=== PATIENT | male | born 1960 | race Caucasian/White ===

== ENCOUNTER 2020-06-18 07:48 | Outpatient (REF) | payer OTHER, SELFPAY ==
[2020-06-18 11:35] LABS: Estimated Average Glucose 186 mg/dL; Hemoglobin A1c % 8.1 %
[2020-06-18 11:53] LABS: Cholesterol 120 mg/dL; HDL Cholesterol 35 mg/dL; LDL Cholesterol Calculated 53 mg/dl; Triglycerides 162 mg/dL
[2020-06-18 11:57] LABS: Microalbum/Creatinine Ratio Ur 11.7 ug/mg cr
== END 2020-06-18 07:49 | disposition home or self-care (01) ==
LOC: HO.MANLR 07:48
PROVIDERS: PCP Internal Medicine; Visit Provider Internal Medicine
DX: E11.9 Type 2 diabetes mellitus without complications (principal)
CPT/HCPCS: 36415; 80061; 82043; 83036

== ENCOUNTER 2020-10-22 07:36 | Outpatient (REF) | payer OTHER, SELFPAY ==
[2020-10-22 11:47] LABS: Estimated Average Glucose 278 mg/dL; Hemoglobin A1c % 11.3 %
== END 2020-10-22 07:37 | disposition home or self-care (01) ==
LOC: HO.MANLDS 07:36
PROVIDERS: PCP Internal Medicine; Visit Provider Internal Medicine
DX: E11.9 Type 2 diabetes mellitus without complications (principal)
CPT/HCPCS: 36415; 83036

== ENCOUNTER 2020-11-07 09:47 | Outpatient (REF) | payer OTHER, SELFPAY ==
[2020-11-07 13:13] LABS: Estimated Average Glucose 289 mg/dL; Hemoglobin A1c % 11.7 %
[2020-11-07 13:33] LABS: Anion Gap 15 (12-20); Blood Urea Nitrogen 14 mg/dL (9-16); Calcium 9.1 mg/dL (8.4-10.2); Carbon Dioxide 22 mmol/L (22-29); Chloride 103 mmol/L (96-108); Estimated Glomerular Filt Rate > 60; Glucose Fasting 284 mg/dL (60-99); Potassium 4.3 mmol/L (3.3-5.1); Sodium 136 mmol/L (135-145)
== END 2020-11-07 09:48 | disposition home or self-care (01) ==
LOC: HO.MANLDS 09:47
PROVIDERS: PCP Internal Medicine; Visit Provider Internal Medicine
DX: E11.9 Type 2 diabetes mellitus without complications (principal); E87.1 Hypo-osmolality and hyponatremia
CPT/HCPCS: 36415; 80048; 83036

== ENCOUNTER 2020-12-10 07:45 | Outpatient (REF) | payer OTHER, SELFPAY ==
[2020-12-10 11:07] LABS: Estimated Average Glucose 237 mg/dL; Hemoglobin A1c % 9.9 %
== END 2020-12-10 07:46 | disposition home or self-care (01) ==
LOC: HO.MANLDS 07:45
PROVIDERS: PCP Internal Medicine; Visit Provider Internal Medicine
DX: E11.9 Type 2 diabetes mellitus without complications (principal)
CPT/HCPCS: 36415; 83036

== ENCOUNTER 2021-02-20 07:39 | Outpatient (REF) | payer OTHER, SELFPAY ==
[2021-02-20 11:36] LABS: Cholesterol 113 mg/dL; HDL Cholesterol 41 mg/dL; LDL Cholesterol Calculated 49 mg/dl; Triglycerides 118 mg/dL
[2021-02-20 11:44] LABS: Estimated Average Glucose 154 mg/dL
== END 2021-02-20 07:40 | disposition home or self-care (01) ==
LOC: HO.MANLDS 07:39
PROVIDERS: PCP Internal Medicine; Visit Provider Internal Medicine
DX: E11.9 Type 2 diabetes mellitus without complications (principal)
CPT/HCPCS: 36415; 80061; 83036

== ENCOUNTER 2021-05-20 08:10 | Outpatient (REF) | payer OTHER, SELFPAY ==
[2021-05-20 11:32] LABS: Estimated Average Glucose 143 mg/dL; Hemoglobin A1c % 6.6 %
== END 2021-05-20 08:11 | disposition home or self-care (01) ==
LOC: HO.MANLDS 08:10
PROVIDERS: PCP Internal Medicine; Visit Provider Internal Medicine
DX: E11.9 Type 2 diabetes mellitus without complications (principal)
CPT/HCPCS: 36415; 83036

== ENCOUNTER 2021-08-19 07:47 | Outpatient (REF) | payer OTHER, SELFPAY ==
[2021-08-19 11:57] LABS: Estimated Average Glucose 148 mg/dL; Hemoglobin A1c % 6.8 %
[2021-08-19 12:10] LABS: Creatinine Urine 178.52 mg/dL; Microalbum/Creatinine Ratio Ur 8.4 ug/mg cr
[2021-08-19 12:17] LABS: Alanine Aminotransferase 35 U/L (0-40); Albumin Level 4.5 g/dL (3.5-5.0); Alkaline Phosphatase 58 U/L (39-117); Anion Gap 14 (12-20); Aspartate Amino Transferase 17 U/L (5-37); Bilirubin Total 0.6 mg/dL (0.0-1.0); Blood Urea Nitrogen 15 mg/dL (9-16); Calcium 9.3 mg/dL (8.4-10.2); Carbon Dioxide 28 mmol/L (22-29); Chloride 101 mmol/L (96-108); Cholesterol 113 mg/dL; Estimated Glomerular Filt Rate > 60; Glucose Fasting 102 mg/dL (60-99); HDL Cholesterol 36 mg/dL; LDL Cholesterol Calculated 52 mg/dl; Potassium 4.9 mmol/L (3.3-5.1); Sodium 138 mmol/L (135-145); Triglycerides 128 mg/dL
[2021-08-19 12:39] LABS: Vitamin B12 364 pg/mL (200-900)
[2021-08-19 12:48] LABS: Thyroid Stimulating Hormone 1.57 uIU/mL (0.32-4.0)
[2021-08-20 14:32] LABS: Prostate Specific Antigen 1.31 ng/mL (<0.05-4.0); Vitamin D 25-OH Total 13.3 ng/mL (>30)
== END 2021-08-19 07:48 | disposition home or self-care (01) ==
LOC: HO.MANLDS 07:47
PROVIDERS: PCP Internal Medicine; Visit Provider Internal Medicine
DX: Z12.5 Encounter for screening for malignant neoplasm of prostate (principal); I10 Essential (primary) hypertension; E11.9 Type 2 diabetes mellitus without complications
CPT/HCPCS: 36415; 80053; 80061; 82043; 82306; 82607; 83036; 84153; 84443

== ENCOUNTER 2021-12-16 07:32 | Outpatient (REF) | payer OTHER, SELFPAY ==
[2021-12-16 11:08] LABS: Estimated Average Glucose 148 mg/dL; Hemoglobin A1c % 6.8 %
[2021-12-16 11:42] LABS: Vitamin D 25-OH Total 35.7 ng/mL (>30)
== END 2021-12-16 07:33 | disposition home or self-care (01) ==
LOC: HO.MANLDS 07:32
PROVIDERS: Visit Provider Internal Medicine
DX: E11.9 Type 2 diabetes mellitus without complications (principal); E55.9 Vitamin D deficiency, unspecified
CPT/HCPCS: 36415; 82306; 83036

== ENCOUNTER 2022-04-07 07:34 | Outpatient (REF) | payer OTHER, SELFPAY ==
[2022-04-07 11:49] LABS: Estimated Average Glucose 160 mg/dL; Hemoglobin A1c % 7.2 %
[2022-04-07 12:03] LABS: Prostate Specific Antigen 1.68 ng/mL (<0.05-4.0); Thyroid Stimulating Hormone 1.49 uIU/mL (0.32-4.0); Vitamin D 25-OH Total 29.9 ng/mL (>30)
[2022-04-07 12:05] LABS: Alanine Aminotransferase 43 U/L (0-40); Albumin Level 4.4 g/dL (3.5-5.0); Alkaline Phosphatase 71 U/L (39-117); Anion Gap 19 (12-20); Aspartate Amino Transferase 21 U/L (5-37); Bilirubin Total 0.3 mg/dL (0.0-1.0); Blood Urea Nitrogen 18 mg/dL (9-16); Carbon Dioxide 25 mmol/L (22-29); Chloride 103 mmol/L (96-108); Cholesterol 123 mg/dL; Estimated Glomerular Filt Rate > 60; Glucose Random 130 mg/dL (60-115); HDL Cholesterol 39 mg/dL; LDL Cholesterol Calculated 39 mg/dl; Potassium 5.1 mmol/L (3.3-5.1); Sodium 142 mmol/L (135-145); Total Protein 6.9 g/dL (6.5-8.0); Triglycerides 228 mg/dL
[2022-04-07 12:21] LABS: Microalbum/Creatinine Ratio Ur 14.7 ug/mg cr
[2022-04-07 12:28] LABS: Vitamin B12 328 pg/mL (200-900)
== END 2022-04-07 07:35 | disposition home or self-care (01) ==
LOC: HO.MANLDS 07:34
PROVIDERS: Visit Provider Internal Medicine
DX: Z12.5 Encounter for screening for malignant neoplasm of prostate (principal); I10 Essential (primary) hypertension; E11.9 Type 2 diabetes mellitus without complications
CPT/HCPCS: 36415; 80053; 80061; 82043; 82306; 82607; 83036; 84153; 84443

== ENCOUNTER 2022-08-18 07:30 | Outpatient (REF) | payer OTHER, SELFPAY ==
[2022-08-18 11:57] LABS: Estimated Average Glucose 171 mg/dL; Hemoglobin A1c % 7.6 %
== END 2022-08-18 07:31 | disposition home or self-care (01) ==
LOC: HO.MANLDS 07:30
PROVIDERS: Visit Provider Internal Medicine
DX: E11.9 Type 2 diabetes mellitus without complications (principal); E55.9 Vitamin D deficiency, unspecified
CPT/HCPCS: 36415; 82306; 83036

== ENCOUNTER 2022-12-15 07:34 | Outpatient (REF) | payer OTHER, SELFPAY ==
[2022-12-15 15:19] LABS: Estimated Average Glucose 137 mg/dL; Hemoglobin A1c % 6.4 %
[2022-12-15 15:35] LABS: Cholesterol 90 mg/dL; HDL Cholesterol 36 mg/dL; LDL Cholesterol Calculated 32 mg/dl; Triglycerides 111 mg/dL
== END 2022-12-15 07:35 | disposition home or self-care (01) ==
LOC: HO.MANLDS 07:34
PROVIDERS: Visit Provider Internal Medicine
DX: E11.9 Type 2 diabetes mellitus without complications (principal)
CPT/HCPCS: 36415; 80061; 83036

== ENCOUNTER 2023-03-16 07:34 | Outpatient (REF) | payer OTHER, SELFPAY ==
[2023-03-16 14:08] LABS: Estimated Average Glucose 128 mg/dL; Hemoglobin A1c % 6.1 % (<6.0)
[2023-03-16 14:40] LABS: Alanine Aminotransferase 39 U/L (0-40); Albumin Level 4.4 g/dL (3.5-5.0); Alkaline Phosphatase 62 U/L (39-117); Anion Gap 15 (12-20); Aspartate Amino Transferase 23 U/L (5-37); Bilirubin Total 0.4 mg/dL (0.0-1.0); Blood Urea Nitrogen 16 mg/dL (9-16); Calcium 9.7 mg/dL (8.4-10.2); Carbon Dioxide 25 mmol/L (22-29); Chloride 103 mmol/L (96-108); Cholesterol 102 mg/dL (<200); Estimated Glomerular Filt Rate > 60; Glucose Random 110 mg/dL (60-115); HDL Cholesterol 38 mg/dL (>40); LDL Cholesterol Calculated 42 mg/dL (<100); Potassium 3.9 mmol/L (3.3-5.1); Sodium 139 mmol/L (135-145); Total Protein 7.1 g/dL (6.5-8.0); Triglycerides 114 mg/dL (<150)
== END 2023-03-16 07:35 | disposition home or self-care (01) ==
LOC: HO.MANLDS 07:34
PROVIDERS: Visit Provider Internal Medicine
DX: E11.9 Type 2 diabetes mellitus without complications (principal)
CPT/HCPCS: 36415; 80053; 80061; 83036

== ENCOUNTER 2023-05-18 08:20 | Outpatient (REF) | payer OTHER, SELFPAY ==
[2023-05-18 09:22] LABS: Estimated Average Glucose 137 mg/dL; Hemoglobin A1c % 6.4 % (<6.0)
[2023-05-18 09:44] LABS: Alanine Aminotransferase 26 U/L (0-40); Albumin Level 4.3 g/dL (3.5-5.0); Alkaline Phosphatase 63 U/L (39-117); Anion Gap 13 (12-20); Aspartate Amino Transferase 14 U/L (5-37); Bilirubin Total 0.3 mg/dL (0.0-1.0); Blood Urea Nitrogen 16 mg/dL (9-16); Calcium 9.6 mg/dL (8.4-10.2); Carbon Dioxide 31 mmol/L (22-29); Chloride 104 mmol/L (96-108); Cholesterol 89 mg/dL (<200); Estimated Glomerular Filt Rate > 60; Glucose Random 124 mg/dL (60-115); HDL Cholesterol 40 mg/dL (>40); LDL Cholesterol Calculated 38 mg/dL (<100); Potassium 4.7 mmol/L (3.3-5.1); Sodium 143 mmol/L (135-145); Total Protein 7.2 g/dL (6.5-8.0); Triglycerides 59 mg/dL (<150)
== END 2023-05-18 08:21 | disposition home or self-care (01) ==
LOC: HO.LAB 08:20
PROVIDERS: PCP Internal Medicine; Visit Provider Internal Medicine
DX: E11.9 Type 2 diabetes mellitus without complications (principal)
CPT/HCPCS: 36415; 80053; 80061; 83036

== ENCOUNTER 2023-08-24 07:36 | Outpatient (REF) | payer OTHER, SELFPAY ==
[2023-08-24 14:03] LABS: Estimated Average Glucose 131 mg/dL; Hemoglobin A1c % 6.2 % (<6.0)
== END 2023-08-24 07:37 | disposition home or self-care (01) ==
LOC: HO.MANLDS 07:36
PROVIDERS: Visit Provider Internal Medicine
DX: E11.9 Type 2 diabetes mellitus without complications (principal)
CPT/HCPCS: 36415; 83036

== ENCOUNTER 2023-12-07 07:32 | Outpatient (REF) | payer OTHER, SELFPAY ==
[2023-12-07 13:42] LABS: Estimated Average Glucose 134 mg/dL; Hemoglobin A1c % 6.3 % (<6.0)
== END 2023-12-07 07:33 | disposition home or self-care (01) ==
LOC: HO.MANLDS 07:32
PROVIDERS: Visit Provider Internal Medicine
DX: E11.9 Type 2 diabetes mellitus without complications (principal)
CPT/HCPCS: 36415; 83036

== ENCOUNTER 2024-03-23 07:48 | Outpatient (REF) | payer OTHER, SELFPAY ==
[2024-03-23 13:39] LABS: Estimated Average Glucose 131 mg/dL; Hemoglobin A1c % 6.2 % (<6.0); Total Hemoglobin (HGBA1C) 4069.3208 umol/L
== END 2024-03-23 07:49 | disposition home or self-care (01) ==
LOC: HO.MANLDS 07:48
PROVIDERS: Visit Provider Internal Medicine
DX: E11.9 Type 2 diabetes mellitus without complications (principal)
CPT/HCPCS: 36415; 83036

== ENCOUNTER 2024-06-29 06:33 | Outpatient (REF) | payer OTHER, SELFPAY ==
--- OUTSIDE RECORDS SUMMARY | 2024-06-29 06:35 | XMS_ITS | Data Portability ---
Author Organization [facility] Home Service Address [address] [place] [address] Assessment Encounter Date Assessment Date Assessment LastModified by Organization Details LastModified Time 05/31/2023 05/31/2023 [id number] [place] [id number] (POLYSOMNOGRAPH TECH) : MDM LOW MUST MEET 2 OF 3 ELEMENTS: PROBLEMS, DATA OR RISK ELEMENT 1: PROBLEMS ADDRESSED (LOW): 2 OR MORE SELF-LIMITED OR MINOR PROBLEMS OR 1 STABLE CHRONIC ILLNESS OR 1 ACUTE UNCOMPLICATED ILLNESS OR INJURY ELEMENT 2: DATA TO BE REVISED AND ANALYZED (LOW) MUST MEET 1 OF 2 CATEGORIES: CATEGORY 1. REVIEW OF PRIOR EXTERNAL NOTES/RESULTS, ORDERING OF TEST(S) CATEGORY 2. ASSESSMENT REQUIRING INDEPENDENT HISTORIAN(S) INCLUDE WHO THE HISTORIAN IS AND RELATION TO PT AND WHY PT IS UNABLE TO GIVE COMPLETE HISTORY ELEMENT 3: RISK (LOW) RISK OF COMPLICATIONS AND/OR MORBIDITY OR MORTALITY OF PATIENT MANAGEMENT PROVIDER MUST THOROUGHLY DOCUMENT ALL OF THE ELEMENTS COVERED Not available 05/31/2023 15:16:56 09/02/2023 09/02/2023 [id number] [place] [id number] (POLYSOMNOGRAPH TECH) MDM MODERATE MUST MEET 2 OUT OF 3 ELEMENTS: PROBLEMS, DATA OR RISK ELEMENT 1: PROBLEMS ADDRESSED 1 OR MORE CHRONIC ILLNESS WITH EXACERBATION OR 2 OR MORE STABLE CHRONIC ILLNESSES OR 1 UNDIAGNOSED NEW PROBLEM OR 1 ACUTE ILLNESS W/SYMPTOMS OR 1 ACUTE COMPLICATED INJURY ELEMENT 2: DATA MUST MEET 1 OF 3 CATEGORIES CATEGORY 1: REVIEW OF PRIOR EXTERNAL NOTES, REVIEW OF RESULTS, ORDERING OF EACH TEST, ASSESSMENT REQUIRING INDEPENDENT HISTORIAN OR CATEGORY 2: INDEPENDENT INTERPRETATION OF TESTS BY ANOTHER PHYSICIAN OR SPECIALIST OR CATEGORY 3: DISCUSSION OF MGT OR TEST INTERPRETATION W/EXTERNAL PHYSICIAN OR SPECIALIST ELEMENT 3: RISK RISK OF COMPLICATIONS AND/OR MORBIDITY OR MORTALITY OF PATIENT MANAGEMENT PROVIDER MUST THOROUGHLY DOCUMENT EACH ELEMENT THAT IS COVERED Not available 09/02/2023 11:18:18 12/14/2023 12/14/2023 [id number] [place] [id number] (POLYSOMNOGRAPH TECH) MDM MODERATE MUST MEET 2 OUT OF 3 ELEMENTS: PROBLEMS, DATA OR RISK ELEMENT 1: PROBLEMS ADDRESSED 1 OR MORE CHRONIC ILLNESS WITH EXACERBATION OR 2 OR MORE STABLE CHRONIC ILLNESSES OR 1 UNDIAGNOSED NEW PROBLEM OR 1 ACUTE ILLNESS W/SYMPTOMS OR 1 ACUTE COMPLICATED INJURY ELEMENT 2: DATA MUST MEET 1 OF 3 CATEGORIES CATEGORY 1: REVIEW OF PRIOR EXTERNAL NOTES, REVIEW OF RESULTS, ORDERING OF EACH TEST, ASSESSMENT REQUIRING INDEPENDENT HISTORIAN OR CATEGORY 2: INDEPENDENT INTERPRETATION OF TESTS BY ANOTHER PHYSICIAN OR SPECIALIST OR CATEGORY 3: DISCUSSION OF MGT OR TEST INTERPRETATION W/EXTERNAL PHYSICIAN OR SPECIALIST ELEMENT 3: RISK RISK OF COMPLICATIONS AND/OR MORBIDITY OR MORTALITY OF PATIENT MANAGEMENT PROVIDER MUST THOROUGHLY DOCUMENT EACH ELEMENT THAT IS COVERED Not available 12/14/2023 09:44:55 03/26/2024 03/26/2024 [id number] [place] [address] (POLYSOMNOGRAPH TECH) MDM MODERATE MUST MEET 2 OUT OF 3 ELEMENTS: PROBLEMS, DATA OR RISK ELEMENT 1: PROBLEMS ADDRESSED 1 OR MORE CHRONIC ILLNESS WITH EXACERBATION OR 2 OR MORE STABLE CHRONIC ILLNESSES OR 1 UNDIAGNOSED NEW PROBLEM OR 1 ACUTE ILLNESS W/SYMPTOMS OR 1 ACUTE COMPLICATED INJURY ELEMENT 2: DATA MUST MEET 1 OF 3 CATEGORIES CATEGORY 1: REVIEW OF PRIOR EXTERNAL NOTES, REVIEW OF RESULTS, ORDERING OF EACH TEST, ASSESSMENT REQUIRING INDEPENDENT HISTORIAN OR CATEGORY 2: INDEPENDENT INTERPRETATION OF TESTS BY ANOTHER PHYSICIAN OR SPECIALIST OR CATEGORY 3: DISCUSSION OF MGT OR TEST INTERPRETATION W/EXTERNAL PHYSICIAN OR SPECIALIST ELEMENT 3: RISK RISK OF COMPLICATIONS AND/OR MORBIDITY OR MORTALITY OF PATIENT MANAGEMENT PROVIDER MUST THOROUGHLY DOCUMENT EACH ELEMENT THAT IS COVERED Not available 03/26/2024 13:46:58 Plan of Treatment Reminders Order Date Submit Date Provider Last Modified By Organization Details Last Modified Time Details Appointments FOLLOW UP 15 2024 09:15A M DR KEY Not available Not available Not available Lab None recorded. Referral None recorded. Procedures None recorded. Surgeries None recorded. Imaging CT, sinuses, w/wo contrast 2023 024 [email or web address] Not available 10/04/2023 10:14:24 Medication Orders amoxicill in 875 mg-potass ium clavulana te 125 mg tablet 2023 024 [email or web address] [id number], [address] [place], [address], 09/28/2023 14:01:28 Patient TargetsNo targets recorded. Patient Instructions Encounter Date Encounter Id Patient Instructions Last Modified By Organization Details Last Modified Time 09/02/2023 [id number] Acute Sinusitis: Care Instructions Not available 09/02/2023 11:19:44 09/28/2023 [id number] chronic sinusitis: care instructions Not available 09/28/2023 14:16:44 12/14/2023 [id number] learning about type 2 diabetes Not available 12/14/2023 09:50:14 type 2 diabetes: care instructions Not available 12/14/2023 09:50:14 type 2 diabetes: care instructions Not available 12/14/2023 09:50:14 chronic sinusitis: care instructions Not available 12/14/2023 09:50:15 03/26/2024 [id number] type 2 diabetes: care instructions Not available 03/26/2024 13:48:22 Reason for Referral None Reported. Results Created Date Observation Date Name Description Value Unit Range Abnormal Flag Note LastModifiedBy Organization Detail LastModifiedTime 11/08/19 24 11/03/2023 CT, sinus es, w/o contr ast No observ ation record ed. [facility] (Scheduling Dept) [address] [place], [address], 12/14/2023 09:49:06 Result Notes None recorded. Problems Name Problem SNOMED Code Status Onset Date Resolution Date Notes Provider Name and Address Organization Details Recorded Time Hypo-osm olality and or hyponatr emia 471991595 Active 2017 Mario Key DO [address] [place], [address], [facility] 8 15:01:40 Pneumoni a 543228219 Active 2017 Mario Key DO [address] [place], [address], [facility] 8 15:01:49 Legionel la pneumoni a 925513903 Active 2017 Mario Key, DO [address] [place] [address], [address], [facility] 8 15:04:57 Tobacco user 256252600 Active 2017 Mario Key, DO [address] [place] [address], [address], [facility] 8 11:18:52 Herpesvi jesi infectio n 47541918 Active 2017 opthalmi val Oropeza [facility] 8 15:22:55 Tobacco dependen ce syndrome 72759314 Active 2018 Mario Key DO [address] [place] [address], [address], [facility] 9 10:17:52 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 5901322290 89443 Active 2018 Mario Key DO [address] [place] [address], [address], [facility] 9 09:05:14 Vitamin D deficien cy 00772997 Active 2021 Mario Key DO [address] [place] [address], [address], [facility] 2 10:10:46 Continuo us dependen ce on cigarett e smoking 2865862652 17358 Active 2021 Mario Key DO [address] [place] [address], [address], [facility] 2 11:50:41 Eczema 15458058 Active 2021 Mario Key DO [address] [place] [address], [address], [facility] 2 22:01:26 Pain in left arm 204696093 Active 2021 RUDY SHELBY [address] [place], [address], [facility] 2 14:01:12 Type 2 diabetes mellitus without complica tion 900432617 [facility] 15:43:36 Acute sinusiti s 43387002 Active 2022 Mario Key, [address] [place], [address], [facility] 3 10:05:59 Chronic sinusiti s 90911610 Active 2023 Mario Key DO [address] [place] [address], [address], [facility] 4 14:15:58 Chronic pansinus itis 08900617 Active 2023 Mario Key DO [address] [place] [address], [address], [facility] 4 22:07:03 Hyperten sive disorder 94843781 [facility] 08:48:08 Hypercho lesterol emia 20235578 Active 2017 [facility] 8 08:48:15 Impaired fasting glycemia 081127567 Completed 201708/21/2018 Mario Key DO [address] [place] [address], [address], [facility] 9 10:55:58 Polyp of colon 24891119 Active 2017 [facility] 08:49:09 Problem Notes None recorded. Procedures Surgical History Date Name Laterality Status Provider Name and Address Organization Details Recorded Time 7 Colonoscopy completed Florecita Oropeza [facility] 01/01/2019 09:58:53 Imaging Results Imaging Date Name Status LastModified by Organ ation Details LastModified Time 11/03/2023 CT, sinuses, w/o contrast completed [facility] (Scheduling Dept) [address] [facility], [place], [address], 12/14/2023 09:49:06 Procedure Notes None recorded. Medical Equipment None Reported. Allergies Allergen ID Allergen Name Allergen Category Reaction Reaction Severity Criticality Documentation Date Start Date Code Code System Note Provider Name and Address Organization Details Recorded Time 194 Substance with sulfonami de structure and antibacte rial mechanism of action (substanc e) medicatio n Not available Not available Not available 08/01/2017 43072 8003 SNOMED Florecita duenas [place] - [facility] 8 08:47:59 Medications Name Sig Start Date Stop Date Status Note LastModified by Organization Details LastModified Time Prescriptio n - Change active Not Available Not Available N ot Available Prescriptio n - Prior Authorizati on Request active Not Available Not Available N ot Available amoxicillin 500 mg capsule TAKE 1 CAPSULE BY MOUTH EVERY 8 HOURS UNTIL FINISHED 08/01 completed Not Available Not Available Not Available azithromyci n 250 mg tablet TAKE 2 TABLETS BY MOUTH TODAY, THEN TAKE 1 TABLET DAILY FOR 4 DAYS DIRECTED 09/01 completed Not Available Not Available Not Available meloxicam 15 mg tablet TAKE 1 TABLET BY MOUTH EVERY DAY DIRECTED 12/20 completed Not Available Not Available Not Available clobetasol 0.05 % topical cream APPLY THIN COAT TO AFFECTED AREA TWICE A DAY active Not Available Not Available No t Available simvastatin 80 mg tablet TAKE 1 TABLET DAILY active Not Available Not Available No t Available triamcinolo ne acetonide 0.1 % topical cream APPLY A THIN LAYER TO THE AFFECTED AREA(S) BY TOPICAL ROUTE 2 TIMES PER DAY 08/01 completed Not Available Not Available Not Available acyclovir 800 mg tablet TAKE 1 TABLET BY MOUTH EVERY DAY active Not Available Not Available No t Available oseltamivir 75 mg capsule Take 1 capsule twice a day by oral route for 5 days. 02/03 completed Not Available Not Available Not Available metformin 1,000 mg tablet TAKE 1 TABLET TWICE A DAY 2024 active Not Available Not Available Not Avai lable lisinopril 10 mg tablet Take 1 tablet every day by oral route. 08/21 completed Not Available Not Available Not Available nicotine 21 mg/24 hr daily transdermal patch Apply 1 patch every day by transderm al route for 30 days. 02/26 completed Not Available Not Available Not Available ibuprofen 600 mg tablet TAKE 1 TABLET BY MOUTH EVERY 6 HOURS NEEDED FOR PAIN 08/01 completed Not Available Not Available Not Available levofloxaci n 750 mg tablet Take 1 tablet every day by oral route for 5 days. 02/03 completed Not Available Not Available Not Available metformin ER 500 mg tablet,exte nded release 24 hr TAKE 1 TABLET BY MOUTH EVERY DAY 09/02 completed Not Available Not Available Not Available amoxicillin 875 mg-potassiu m clavulanate 125 mg tablet TAKE 1 TABLET BY MOUTH EVERY 12 HOURS FOR 14 DAYS 09/27 completed Not Available Not Available Not Available Januvia 100 mg tablet TAKE 1 TABLET BY MOUTH EVERY DAY active Not Available Not Available No t Available GaviLyte-G 236 gram-22.74 gram-6.74 gram-5.86 gram oral solution 09/09 completed Not Available Not Available Not Available Ozempic 0.25 mg or 0.5 mg (2 mg/3 mL) subcutaneou s pen injector INJECT 0.5MG INTO THE SKIN ONCE WEEKLY active Not Available Not Available No t Available Vitals Date Recorded Body height Body mass index (BMI) Body weight Oxygen saturation Oxygen saturation in Arterial blood by Pulse oximetry Heart rate Systolic blood pressure Diastolic blood pressure Provider Name and Address Organization Details Last Updated DateTime 4 172.72 cm 41.2 kg/m2 321116. 53 g 97 % 97 % 72 /min 128 mm[Hg] 72 mm[Hg] Mario Key, DO [address] [place], [address] 4 10:50:03 Date Recorded Body height Body mass index (BMI) Body weight Heart rate Respiratory rate Oxygen saturation Oxygen saturation in Arterial blood by Pulse oximetry Systolic blood pressure Diastolic blood pressure Provider Name and Address Organization Details Last Updated DateTime 4 172.72 cm 40.6 kg/m2 804108. 16 g 85 /min 18 /min 97 % 97 % 138 mm[Hg] 82 mm[Hg] Coy Varma [facility] 4 14:00:44 Date Recorded Body height Body mass index (BMI) Body weight Heart rate Oxygen saturation Oxygen saturation in Arterial blood by Pulse oximetry Systolic blood pressure Diastolic blood pressure Provider Name and Address Organization Details Last Updated DateTime 4 172.72 cm 40.4 kg/m2 805951. 57 g 85 /min 97 % 97 % 128 mm[Hg] 78 mm[Hg] Yusra Prescott [facility] 4 09:14:46 Date Recorded Body height Body mass index (BMI) Body weight Heart rate Oxygen saturation Oxygen saturation in Arterial blood by Pulse oximetry Systolic blood pressure Diastolic blood pressure Provider Name and Address Organization Details Last Updated DateTime 4 172.72 cm 40.1 kg/m2 804446. 39 g 71 /min 96 % 96 % 128 mm[Hg] 70 mm[Hg] Coy Varma [facility] 4 13:31:49 Social History Question Answer Notes LastModified by Sweeperyizat ion Details LastModified Time Tobacco Smoking Status Current Every Day Smoker Not Available [facility] 04/01/2020 03:36:24 What Was The Date Of Your Most Recent Tobacco Screening? 03/26/2024 Information not available 03/26/2024 How Much Tobacco Do You Smoke? 0.5 PPD Information not available 09/28/2023 Do You Or Have You Ever Used Any Other Forms Of Tobacco Or Nicotine? No Information not available 08/25/2022 Sex: Unknown Functional Status None recorded. Mental Status None recorded. Family History Nothing Reported. Medical History No medical history recorded. Immunizations Vaccine Type Date Status Note Provider Nam e and Address Organization Details Recorded Time COVID-19, mRNA, LNP-S, PF, 100 mcg/0.5mL dose or 50 mcg/0.25mL dose 09/17/2020 completed Not Available [facility] 3 11:19:00 COVID-19, mRNA, LNP-S, PF, 100 mcg/0.5mL dose or 50 mcg/0.25mL dose 10/14/2020 completed Not Available [facility] 3 11:19:00 Past Encounters Encounter ID Performer Location Encounter Start Date Encounter Closed Date Diagnosis/Indication Diagnosis SNOMED-CT Code Diagnosis ICD10 Code Diagnosis Note [id number] Mario Key [facility] [address] [facility],[place] [address] 09/09/2017 09:59:51 09/09/2017 12:24:07 Hypercholesterolemia 33175578 E78.00 recheck in 4-5 months Impaired f asting glycemia 312402400 R73.01 discussion re diet and eating habilts has gained some wgt but will embark on better diet problis he only eats once a day revchk lab in 3 months Hypertensive disorder 38 215115 I10 here for rechk states has been watching and has been ok [id number] Mario Key [facility] [address] [facility],[place] [address] 12/16/2017 11:50:42 12/16/2017 13:38:19 Nummular eczema 38652458 L30.0 [id number] August DANIEL Mills [facility] [address] [facility],[place] [address] 01/18/2018 09:42:29 01/18/2018 10:34:32 Fever 967007429 R50.9 possibly flu, unclear given absence of any other sx besides body aches fluids, rest, tylenol/ib uprofen for fever Hypertensive disorder 38 850270 I10 mildly elevated today ? 2/2 fever Impaired f asting glycemia 907122001 R73.01 [id number] Mario Key [facility] [address] [facility],[place] [address] 02/03/2018 13:56:39 02/03/2018 15:13:09 Hypo-osmolality and or hyponatremia 230458274 E87.1 needs further lab when stable to check for SIADH Pneumonia 524439243 J18. 9 op tx with levaquin had signif levi infilt with reactive lymphadeno matt will need a CXR in a couple weeks had a positive legionella ag test in urine Legionella pneumonia 195 843482 A48.1 as above [id number] Mario Key [facility] [address] [facility] [address] [address] 02/22/2018 14:33:30 02/22/2018 15:42:44 Hypertensive disorder 36839805 I10 here for rechk states has been watching and has been ok Impaired f asting glycemia 270655427 R73.01 discussion re diet and eating habilts has gained some wgt but will embark on better diet problis he only eats once a day revchk lab in 3 months Pneumonia 241978267 J18. 9 legionella pneumonia has totally cleared by cxr feels back to normal Hypo-osmol ality and or hyponatremia 069515952 E87.1 needs further lab when stable to check for SIADH all ordered [id number] Mario Key DO [facility] [address] [facility] [address],[place] [address] 05/01/2018 10:42:34 05/01/2018 14:46:03 Impaired fasting glycemia 370104697 R73.01 a1c is 6.5 and is not careful with diabetes diet and is eating poorly warned him agian re dangers of developing full dm discussion re diet and eating habilts has gained some wgt but will embark on better diet problis he only eats once a day revchk lab in 3 months Hypertensive disorder 38 189129 I10 here for rechk states has been watching and has been ok is off the bp meds per the specialist s also will cont to chk bp if he cont to rise will need to be started back on med Tobacco user 641419006 Z 72.0 warned again re use needs to abstain given his other pathology [id number] DO [facility] [address] [facility] [address],[place] [address] 08/21/2018 10:13:37 08/21/2018 11:13:11 Hypercholesterolemia 57619526 E78.00 recheck in 4-5 months Hypertensive disorder 38 439067 I10 here for rechk states has been watching and has been ok is off the bp meds per the specialist s also will cont to chk bp if he cont to rise will need to be started back on med Type 2 noel betes mellitus 78781807 E11.9 plan will order metformin 500 daily and rechk in 4 months [id number] Mario Key [facility] [address] [facility] [address],[place] [address] 01/01/2019 09:41:36 01/01/2019 10:27:33 Hypertensive disorder 85554254 I10 here for rechk states has been watching and has been ok is off the bp meds per the specialist s also will cont to chk bp if he cont to rise will need to be started back on med Hypercholesterolemia 136 33697 E78.00 recheck in 4-5 months Tobacco user 133414416 Z 72.0 warned again re use needs to abstain given his other pathology Hepatitis C screening 41 3861368 Z11.59 Active or passive immunization 887536442 Z23 Type 2 noel betes mellitus 02297378 E11.9 metformin 500 daily tolerated and rechk in 4 months Tobacco de pendence syndrome 73563474 F17.200 [id number] Mario Key [facility] [address] [facility] [address],[place] [address] 05/02/2019 08:49:52 05/02/2019 09:13:32 Type 2 diabetes mellitus 80969788 E11.9 metformin 500 daily tolerated but wondering about wgt gain but there is no correlatio n a1c is up to 7.2 and rechk in 4 months Hypertensive disorder 38 272728 I10 bp has been stable and is doing good no chng in meds [id number] Mario Key [facility] [address] [facility] [address],[place] [address] 08/06/2019 09:57:39 08/06/2019 10:54:23 Type 2 diabetes mellitus 83094091 E11.9 metformin 500 daily tolerated but wondering about wgt gain but there is no correlatio n a1c is up to 7.2 and rechk in 4 months Hypertensive disorder 38 818617 I10 bp has been stable and is doing good no chng in meds Active or passive immunization 987480355 Z23 [id number] Mario Key [facility] [address] [facility] [address],[place] [address] 11/23/2019 09:32:18 11/23/2019 11:15:26 Type 2 diabetes mellitus 95871321 E11.9 metformin 500 daily tolerated but wondering about wgt gain but there is no correlatio n a1c is up to 7.6 from 7.5 and rechk in 4 months Hypertensive disorder 38 110398 I10 bp has been stable at home and is doing good despite sl elevat no chng in meds Restless legs 25230892 G 25.81 Pruritic rash 70165358 L 28.2 [id number] Mario Key [facility] [address] [facility] [address] [employer] [facility] [place] [address] 02/27/2020 09:02:57 02/27/2020 09:49:10 Type 2 diabetes mellitus 27642693 E11.9 metformin 500 daily tolerated but wondering about wgt gain but there is no correlatio n a1c is 7.5 and was up to 7.6 from 7.5 and rechk in 4 months Hypercholesterolemia 136 75217 E78.00 recheck in 4-5 months Hypertensive disorder 38 457681 I10 bp has been stable at home and is doing good despite sl elevat no chng in meds Petechiae of skin 633628 004 R23.3 could this be the acyclovir? will ask derm to see him [id number] Mario Key [facility] [address] [facility],[place] [address] 08/01/2020 08:44:29 08/01/2020 09:24:42 Type 2 diabetes mellitus 07635911 E11.9 a1c is 8.1 he is out of control states will get back in shape about this we will cont the metformin but if still high will need to treat we will rechk in3 mo dm foot exam is good Hypercholesterolemia 136 37081 E78.00 LDL is good HDL adequate will repeat in october Hypertensive disorder 38 346606 I10 bp has been stable at home and is doing good despite sl elevat no chng in meds [id number] Mario Key [facility] [address] [facility] [address],[place] [address] 11/07/2020 08:57:13 11/07/2020 12:17:51 Type 2 diabetes mellitus 03615755 E11.9 a1c is now 11.3 and was 8.1 he is out of control but i am not sure why this is as he has lost 20lbs in last 2 months by eating well and better and is much more active we ramsey rechk this lab as i have a hard time believing this result is accurate given the pts presentati on and hx will also chk his Na+ level Legionella pneumonia 195 940115 A48.1 resolved Hypertensive disorder 38 127530 I10 bp has been stable at home and is doing good despite sl elevat no chng in meds Hypercholesterolemia 136 34828 E78.00 LDL is good HDL adequate will repeat in october Hypo-osmol ality and or hyponatremia 139402368 E87.1 stable in jan and we will rechk now [id number] Mario Key DO [facility] [address] [facility] [address] [employer] [facility] [place] [address] 11/11/2020 16:02:55 11/11/2020 16:50:33 Type 2 diabetes mellitus 88136493 E11.9 a1c is now 11.7 from 11.3 and was 8.1 he is out of control but i am not sure why this is as he has lost 20lbs in last 2 months by eating well and better and is much more active change metformin to 1gm bid and add januvia 100mg \ [id number] Mario Key DO [facility] [address] [facility],[place] [employer] [place] [address] 12/17/2020 08:54:15 12/17/2020 09:36:44 Hypertensive disorder 36466855 I10 bp has been stable at home and is doing good despite sl elevat no chng in meds Type 2 noel betes mellitus 81324442 E11.9 a1c is now down to 9.9 from 11.7 from 11.3 and was 8.1 he is out of control but i am not sure why this is as he has lost 20lbs in last 2 months by eating well and better and is much more active change metformin to 1gm bid and add januvia 100mg \ [id number] Mario Key DO [facility] [address] [facility] [address] [employer] [place] [place] [address] 02/27/2021 08:18:42 02/27/2021 15:32:51 Hypertensive disorder [id number] I10 bp has been stable at home and is doing good despite sl elevat no chng in meds bp has been great Hypo-osmol ality and or hyponatremia 906835562 E87.1 stable in jan and we will rechk now Type 2 noel betes mellitus 19826918 E11.9 a1c is now 7.0!!!!!!! !! then down to 9.9 from 11.7 from 11.3 and was 8.1 he is out of control but i am he has lost 20lbs in last 2 months by eating well and better and is much more active change metformin to 1gm bid and add januvia 100mg tolerating well Pruritic rash 89282762 L 28.2 pt will call if it gets worse [place] [id number] Mario Key, [facility] [address] [facility],[place] [address] [facility] [place] [address] 06/30/2021 09:26:37 07/01/2021 08:50:30 Hypertensive disorder 11667323 I10 bp has been stable at home and is doing good despite sl elevat no chng in meds bp has been great Type 2 noel betes mellitus 03518427 E11.9 a1c is now 6.6 wow!!!!! was down to 7.0!!!!!!! !! then down to 9.9 from 11.7 from 11.3 and was 8.1 he is out of control but i am he has lost 20lbs in last 2 months by eating well and better and is much more active change metformin to 1gm bid and add januvia 100mg tolerating well COVID-19 [id number] U07.1 has resolved and just has some residual Legionella pneumonia 195 478371 A48.1 resolved without sequellae [id number] Mario Key, [facility] [address] [facility] [address],[place] [address] [facility] [place] [address] 09/02/2021 09:30:01 09/02/2021 11:29:14 Type 2 diabetes mellitus 97302091 E11.9 a1c is now 6.6 wow!!!!! was down to 7.0!!!!!!! !! then down to 9.9 from 11.7 from 11.3 and was 8.1 he is out of control but i am he has lost 20lbs in last 2 months by eating well and better and is much more active change metformin to 1gm bid and add januvia 100mg tolerating well Hypercholesterolemia 136 99505 E78.00 LDL is good HDL adequate will repeat in october Hypertensive disorder 38 131397 I10 bp has been stable at home and is doing good despite sl elevat no chng in meds bp has been great Tobacco user 847902632 Z 72.0 warned again re use needs to abstain given his other pathology Hypo-osmol ality and or hyponatremia 873812404 E87.1 stable in jan and we will rechk now Vitamin D deficiency 347 23327 E55.9 [id number] Mario Key [facility] [address] [facility],[place] [address] 12/28/2021 11:35:02 12/28/2021 13:07:07 Type 2 diabetes mellitus 25594131 E11.9 a1c is now 6.8 and was 6.6 wow!!!!! was down to 7.0!!!!!!! !! then down to 9.9 from 11.7 from 11.3 and was 8.1 he is out of control but i am he has lost 20lbs in last 2 months by eating well and better and is much more active change metformin to 1gm bid and add januvia 100mg tolerating well Hypercholesterolemia 136 61369 E78.00 LDL is good HDL adequate will repeat in october Hypertensive disorder 38 981559 I10 bp has been stable at home and is doing good despite sl elevat no chng in meds bp has been great Active or passive immunization [id number] Z23 advised he is due for Tdap and pneumovax Continuous dependence on cigarette smoking [id number] 55178 F17.210 discussed [id number] Mario Key DO [facility] [address] [facility],[place] [address] 04/19/2022 11:04:22 04/19/2022 13:31:19 Type 2 diabetes mellitus 24770148 E11.9 a1c is now 7.2 from 6.8 and was 6.6 wow!!!!! was down to 7.0!!!!!!! !! then down to 9.9 from 11.7 from change metformin to 1gm bid and add januvia 100mg tolerating well Hypercholesterolemia 136 49185 E78.00 LDL is good HDL adequate will repeat in october Hypertensive disorder 38 797239 I10 bp has been stable at home and is doing good despite sl elevat no chng in meds bp has been great Pain in left arm 9327584 00 M79.602 74007 Mario Key, [facility] [address] [facility],[place] [address] 08/25/2022 10:38:42 08/25/2022 11:38:54 Type 2 diabetes mellitus 12992258 E11.9 a1c is now 7.6 and was 7.2 in the fall from 6.8 and was 6.6 wow!!!!! was down to 7.0!!!!!!! !! then down to 9.9 from 11.7 from change metformin to 1gm bid and add januvia 100mg tolerating wellhe is still in need of better controlwe will try to get him ozempic Hypertensive disorder 38 769590 I10 bp has been stable at home and is doing good despite sl elevat no chng in meds bp has been great Vitamin D deficiency 347 42292 E55.9 will need follow up Legionella pneumonia 195 429407 A48.1 resolved without sequellae [id number] Mario Key, [facility] [address] [facility],[place] [address] 12/20/2022 10:11:39 12/20/2022 11:08:41 Hypertensive disorder 27300613 I10 bp has been stable at home and is doing good despite sl elevat no chng in meds bp has been great Type 2 noel betes mellitus 82607761 E11.9 a1c is now 6.4 since the last was 7.6 and was 7.2 in the fall from 6.8 and was 6.6 wow!!!!! he is now down to 6.4 and is doing great with ozempic to 7.0!!!!!!! !! then down to 9.9 from 11.7 from change metformin to 1gm bid and add januvia 100mg tolerating wellhe is still in need of better controlwe will try to get him ozempic Hypercholesterolemia 136 69690 E78.00 LDL is good HDL adequate will repeat in october Mario Key DO [facility] [address] [facility] [address],[place] [employer] [place] [address] 03/23/2023 15:33:55 03/23/2023 16:54:34 Hypercholesterolemia 91895036 E78.00 LDL is good HDL adequate will repeat in october Type 2 noel betes mellitus without complication 538084412 E11.9 doing great at a1c 6.1 on ozemp and metfr will have low threshold to change to mounjaro if supply occurs again Hypertensive disorder 38 533848 I10 bp has been stable at home and is doing good and here it is 120/72 no chng in meds bp has been great [id number] Mario Key [facility] [address] [facility] [address],[place] [employer] [place] [address] 05/31/2023 08:21:35 05/31/2023 16:08:33 Type 2 diabetes mellitus 79370272 E11.9 a1c is now 6.4 and prior was 6.4 since the last was 7.6 and was 7.2 in the fall from 6.8 and was 6.6 wow!!!!! he is now down to 6.4 and is doing great with ozempic to 7.0!!!!!!! !! then down to 9.9 from 11.7 from change metformin to 1gm bid and add januvia 100mg tolerating wellhe is still in need of better controlwe will try to get him ozempic Hypercholesterolemia 136 78820 E78.00 LDL is good HDL adequate will repeat in october Hypertensive disorder 38 232901 I10 bp has been stable at home bps are doing ok overall and is doing good and here it is 120/72 no chng in meds bp has been great [id number] Mario Key [facility] [address] [facility] [address],[place] [employer] [place] [address] 09/02/2023 10:31:21 09/02/2023 12:45:33 Type 2 diabetes mellitus 46105637 E11.9 a1c is now 6.2 was 6.4 and prior was 6.4 since the last was 7.6 and was 7.2 in the fall from 6.8 and was 6.6 wow!!!!! he is now down to 6.4 and is doing great with ozempic to 7.0!! then down to 9.9 from 11.7 from change metformin to 1gm bid and add januvia 100mg tolerating wellhe is still in need of better controlwe will try to get him ozempic Hypercholesterolemia 136 54990 E78.00 LDL is good HDL adequate will repeat in october Acute sinusitis 59394262 J01.90 [id number] Mario Key, [facility] [address] [facility],[place] [address] 09/28/2023 13:48:52 09/28/2023 15:17:03 Acute sinusitis 69403599 J01.90 he has a hx of polyps belive he is not draining Depression screening 171 575394 Z13.31 neg Chronic sinusitis 341177 00 J32.9 [id number] Mario Key [facility] [address] [facility],[place] [address] [employer] [address] 12/14/2023 09:05:43 12/14/2023 11:14:56 Chronic sinusitis 05201337 J32.9 he will call back and let us know if any of the symptoms start to come backwe will treat him with 3 weeks of augmentin Type 2 noel betes mellitus without complication 545157852 E11.9 doing great at a1c 6.3 was 6.1 on ozemp and metfr will have low threshold to change to mounjaro if supply occurs again Type 2 noel betes mellitus 92982452 E11.9 a1c is now 6.3 see above was 6.1 and prior was 6.4 since the last was 7.6 and was 7.2 in the fall from 6.8 and was 6.6 wow!!!!! he is now down to 6.4 and is doing great with ozempic to 7.0!! then down to 9.9 from 11.7 from change metformin to 1gm bid and add januvia 100mg tolerating wellhe is still in need of better controlwe will try to get him ozempic Hypertensive disorder 38 620391 I10 bp has been stable at home bps are doing ok overall and is doing good and here it is 120/72 no chng in meds bp has been great [id number] DO [facility] [address] [facility] [address],[place] [address] 03/26/2024 13:23:41 03/26/2024 15:01:13 Depression screening 248679740 Z13.31 neg Type 2 noel betes mellitus without complication 548588029 E11.9 doing great at a1c is 6.2 prior 6.3 was 6.1 on ozemp and metfr will have low threshold to change to mounjaro if supply occurs again Hypertensive disorder 38 961260 I10 bp has been stable at home bps are doing ok overall and is doing good and here it is 120/72 no chng in meds bp has been great Eczema 05948428 L30.9 stable Health Concerns Section Related Observation LastModified by Organization Detai ls LastModified Time None Recorded Concern Status LastModified by Organization Details LastModified Time None Recorded Advance Directives Directive None Recorded Payers Encounter Date Sequence Insurance Name Policy Number Policy [place] Covered Member ID [place] Member ID Guarantor Name 05/31/2023 1 [facility] [id number] 1 Lalita Peloquin [id number] Ganesh Mckeon Peloquin 09/02/2023 1 [facility] [id number] 1 Lalita Peloquin [id number] Ganesh Mckeon Peloquin 09/28/2023 1 [facility] [id number] 1 Lalita Peloquin [id number] Ganesh Mckeon Peloquin 12/14/2023 1 [facility] [id number] 1 Lalita Peloquin [id number] Ganesh Mckeon Peloquin 03/26/2024 1 [facility] [id number] 1 Lalita Peloquin [id number] Ganesh Abramsoquin Notes Date Note Type Note Provider Name and Address Organization Details Recorded Time 4 text/htm l Care Management - DiabetesReported bypatient.Self Care:seeing eye doctor yearly for dilated eye exam; checking feet regularly; normal range of home blood sugars (in the low 100s); no side effects from medications Associated Symptoms:symptoms are usually well controlled; no fatigue; no dizziness; no excessive sweating; no headaches; no confusion; no increased thirst; no increased appetite; no increased urination; no blurred vision; no numbness of feet; no calluses on feet patient is evaluated via tele/video assessment per patient consentduring current pandemic here rechk and relates that sinus infection is improving and overall is doing better Mario Key DO [address] [place] [address], [phone], [facility] 05/31/2023 15:24:19 4 text/htm l Care Management - DiabetesReported bypatient.Self Care:seeing eye doctor yearly for dilated eye exam; checking feet regularly; normal range of home blood sugars (in the low 100s); no side effects from medications Associated Symptoms:symptoms are usually well controlled; no fatigue; no dizziness; no excessive sweating; no headaches; no confusion; no increased thirst; no increased appetite; no increased urination; no blurred vision; no numbness of feet; no calluses on feetCare Management - HypertensionReported bypatient.Self Care:not under emotional stress Severity:symptoms are improving; does not interfere with daily activities Associated Symptoms:no dizziness; no lightheadedness; no chest pain; no shortness of breath; no palpitations; no edema; no calf muscle cramps; no blurred vision; no confusion; no headaches; no fatigue here for rechk and is doing ok and feels he has a sinus infection with purulent discharge has had sx for 3 mo Mario Key DO [address] [place] [address], [phone], [facility] 09/02/2023 11:21:28 4 text/htm l having ongoing symptoms of nasal sinus drainage with green and bloodno fevers bothering his sleepworse with his lying downhas been using neosynephrine he is on 3rd bottle!! Mario Key DO [address] [place], [address], [facility] 09/28/2023 14:18:23 4 text/htm l here for rechk and is doing ok overall relates that ENT never called Mario Key DO [address] [place], [address], [facility] 12/14/2023 09:50:37 4 text/htm l MEDS- complaint, no ADRs DIET- non compliant complaint with low sugar, lean proteins, lots of veggies, low refined CHO, limits ETOH, doesn't use tobacco products EXERCISE- does not exercise, recognizes the importance, struggles with motivation exercises regularly- typically: LIPIDS- at goal CMP- within normal limits AIC- at goal 6.2 MICROALBUMIN- within normal limits EYE EXAM- last done: next due: FOOT EXAM- last done: next due: had episode of swollen lip allerg reaction better with benadrylunsure of cause Mario Key DO [address] [place], [address], [facility] 03/26/2024 13:55:54
[2024-06-29 07:20] LABS: Estimated Average Glucose 134 mg/dL; Hemoglobin A1C 188.0388 umol/L; Hemoglobin A1c % 6.3 % (<6.0); Total Hemoglobin (HGBA1C) 4149.9463 umol/L
== END 2024-06-29 06:34 | disposition home or self-care (01) ==
LOC: HO.LAB 06:33
PROVIDERS: PCP Internal Medicine; Visit Provider Internal Medicine
DX: E11.9 Type 2 diabetes mellitus without complications (principal)
CPT/HCPCS: 36415; 83036

== ENCOUNTER 2024-11-14 07:07 | Outpatient (REF) | payer OTHER, SELFPAY ==
[2024-11-14 07:59] LABS: Estimated Average Glucose 137 mg/dL; Hemoglobin A1c % 6.4 % (<6.0)
[2024-11-14 08:34] LABS: Alanine Aminotransferase 43 U/L (0-40); Albumin Level 4.4 g/dL (3.5-5.0); Alkaline Phosphatase 62 U/L (39-117); Anion Gap 11 (12-20); Aspartate Amino Transferase 33 U/L (5-37); Bilirubin Total 0.3 mg/dL (0.0-1.0); Blood Urea Nitrogen 15 mg/dL (9-16); Calcium 10.1 mg/dL (8.4-10.2); Carbon Dioxide 29 mmol/L (22-29); Chloride 106 mmol/L (96-108); Cholesterol 91 mg/dL (<200); Estimated Glomerular Filt Rate > 60; Glucose Random 127 mg/dL (60-115); HDL Cholesterol 37 mg/dL (>40); LDL Cholesterol Calculated 36 mg/dL (<100); Potassium 4.6 mmol/L (3.3-5.1); Sodium 141 mmol/L (135-145); Total Protein 6.6 g/dL (6.5-8.0); Triglycerides 91 mg/dL (<150)
== END 2024-11-14 07:08 | disposition home or self-care (01) ==
LOC: HO.LAB 07:07
PROVIDERS: PCP Internal Medicine; Visit Provider Internal Medicine
DX: I10 Essential (primary) hypertension (principal); E78.00 Pure hypercholesterolemia, unspecified; E11.9 Type 2 diabetes mellitus without complications
CPT/HCPCS: 36415; 80053; 80061; 83036

== ENCOUNTER 2025-03-05 07:34 | Outpatient (REF) | payer OTHER, SELFPAY ==
--- OUTSIDE RECORDS SUMMARY | 2025-03-05 07:41 | XMS_ITS | Encounter Summary ---
Author Organization [facility] Address [address] [place] [address] [place] [address] Phone Care Team Providers Care Outside B2B Sales Name Role Phone Unknown, Unknown Primary Care Provider Mario Bowles DO Primary Care Provider [phone] Encounter Details Date Type Department Care Team (Late st Contact Info) Description 01/18/2018 Ancillary Orders Virtual Department [address] [place] [address] Oliva Mills PA-C [address] [place] [address] Fever, unspecified fever cause Social History Tobacco Use Types Packs/Day Years Used Date Smoking Tobacco: Never Assessed Sex and Gender Information Value Date Recorded Sex Assigned at Male 01/21/2018 9:09 AM EDT Legal Sex Male 9:45 PM EDT Gender Identity Male 01/21/2018 9:09 AM EDT Sexual Orientation Not on file documented as of this encounter Plan of Treatment Not on file documented as of this encounter Visit Diagnoses Diagnosis Fever, unspecified fever cause documented in this encounter Additional Health Concerns Infection Onset Date Last Indicated Resolved Time CoV-Risk 04/23/2023 04/23/2023 05/04/2023 1:22 AM EST documented as of this encounter Care Teams Outside B2B Sales Relationship Specialty Start Date End Date Unknown, Unknown, PCP - General 05/10/17 01/19/18 Mario Nunez DO PCP - General Internal Medicine 01/20/18 documented as of this encounter Additional Source Comments The information contained in this document represents components of the legal health record. It is not the complete legal health record.[facility]
--- OUTSIDE RECORDS SUMMARY | 2025-03-05 07:41 | XMS_ITS | Encounter Summary ---
Author Organization [facility] Address [address] [facility] [address] [place] [address] Phone Care Team Providers Care Heating Element Builder Name Role Phone Mario Nunez Primary Care Provider [phone] Encounter Details Date Type Department Care Team (Latest Contact Info) Description 04/18/2018 Transcribe Orders [facility] [address] [place] [id number] Matthew Jones MD [address] [place] [address], [address] [address] [email or web address] Benign prostatic hyperplasia, unspecified whether lower urinary tract symptoms present (Primary Dx) Social History Tobacco Use Types Packs/Day Years Used Date Smoking Tobacco: Every Day Cigarettes 1 20 Cigars Smokeless Tobacco: Never Comments:Smokes 6-7 cigars/d ay Alcohol Use Standard Drinks/Week Comments No 0 (1 standard drink = 0.6 oz pur e alcohol) Sex and Gender Information Value Date Recorded Sex Assigned at Male 01/21/2018 9:09 AM EDT Legal Sex Male 9:45 PM EDT Gender Identity Male 01/21/2018 9:09 AM EDT Sexual Orientation Not on file documented as of this encounter Plan of Treatment Not on file documented as of this encounter Results * PSA (screening) (04/18/2018 7:34 AM EST) PSA 1.09 0 - 4.00 ng/mL [facility] Blood 04/18/2018 7:34 AM EST 04/18/2018 8:04 AM EST us Matthew Jones MD LAB BLOOD ORDERABLES Final Resu lt [address] [address] documented in this encounter Visit Diagnoses Diagnosis Benign prostatic hyperplasia, unspecified whether lower urinary tract symptoms present- Primary documented in this encounter Additional Health Concerns Infection Onset Date Last Indicated Resolved Time CoV-Risk 04/23/2023 04/23/2023 05/04/2023 1:22 AM EST documented as of this encounter Care Teams Heating Element Builder Relationship Specialty Start Date End Date Mario Nunez DO [email or web address] PCP - General Internal Medicine 01/20/18 documented as of this encounter Additional Source Comments The information contained in this document represents components of the legal health record. It is not the complete legal health record.[facility]
--- OUTSIDE RECORDS SUMMARY | 2025-03-05 07:41 | XMS_ITS | Encounter Summary ---
Author Organization [facility] Address [address] [place] [address] Phone Care Team Providers Care Fiber Analyst Name Role Phone Mario Nunez Primary Care Provider [phone] Encounter Details Date Type Department Care Team (Late st Contact Info) Description 01/20/2018 Ancillary Orders Virtual Department [address] [place] [address] Oliva Mills PA-C [address] [place] [address] Fever, unspecified fever cause; Pneumonia due to infectious organism, unspecified laterality, unspecified part of lung Social History Tobacco Use Types Packs/Day Years [...] documented as of this encounter Results * XR CHEST PA AND LATERAL 2 VIEWS (01/20/2018 10:22 AM EDT) Anatomical Region Laterality Modality Chest Radiographic Radha ging 01/20/2018 10:3 5 AM EDT Impressions 01/20/2018 10:44 AM EDT Dense left lower lobe process likely to represent infiltrate in the given clinical setting although mass is possible and follow-up radiographs in 6 weeks after appropriate therapy is recommended. Pneumonia is not suspected clinically, CT and percutaneous biopsy would be warranted. Reading sent via the front counter attendant. POS - [id number] Edited by: Corrina Lopez on 01/20/2018 10:41 AM Narrative 01/20/2018 10:44 AM EDT PA and lateral views of the chest obtained. No prior. There is a large mass or infiltrate in the left lower lobe which is not apparent even partially on prior topogram from CT abdomen study in August 2015. In a patient with fever this is likely to represent a pneumonia given the prominent change but follow-up radiographs in 6 weeks to demonstrate improvement after appropriate therapy recommended. No associated pleural fluid or gross adenopathy. Heart not enlarged. Trachea midline. No compression deformity. Procedure Note Mercy Mehta MD - 01/20/2018 PA and lateral views of the chest obtained. No prior. There is a largemass or infiltrate in the left lower lobe which is not apparent evenpartially on prior topogram from CT abdomen study in August 2015. In apatient with fever this is likely to represent a pneumonia given theprominent change but follow-up radiographs in 6 weeks to demonstrateimprovement after appropriate therapy recommended. No associated pleuralfluid or gross adenopathy. Heart not enlarged. Trachea midline. Nocompression deformity. IMPRESSION: Dense left lower lobe process likely to represent infiltrate in the givenclinical setting although mass is possible and follow-up radiographs in 6weeks after appropriate therapy is recommended. Pneumonia is not suspectedclinically, CT and percutaneous biopsy would be warranted. Reading sentvia the front counter attendant. POS - [id number] Edited by: Corrina Lopez on 01/20/2018 10:41 AM August Lina ISAAC IMG XR CHEST Final Result documented in this encounter Visit Diagnoses Diagnosis Fever, unspecified fever cause Pneumonia due to infectious organism, unspecified laterality, unspecified part of lung Fever, unspecified fever cause Pneumonia due to infectious organism, unspecified laterality, unspecified part of lung documented in this encounter Additional Health Concerns Infection Onset Date Last Indicated Resolved Time CoV-Risk 04/23/2023 04/23/2023 05/04/2023 1:22 AM EST documented as of this encounter Care Teams Fiber Analyst Relationship Specialty Start Date End Date Mario Nunez DO [email or web address] PCP - General Internal Medicine 01/20/18 documented as of this encounter Additional Source Comments The information contained in this document represents components of the legal health record. It is not the complete legal health record.[facility]
--- OUTSIDE RECORDS SUMMARY | 2025-03-05 07:41 | XMS_ITS | Encounter Summary ---
Author Organization [facility] Address [address] [address] Phone Care Team Providers Care Electric Stove Installer Name Role Phone Unknown, Unknown Primary Care Provider Mario Bowles DO Primary Care Provider [phone] Encounter Details Date Type Department Care Team (Late st Contact Info) Description 01/09/2018 Transcribe Orders [facility] [address] [place] [address] Mario Nunez DO [address] [place] [address] Type 2 diabetes mellitus without complication, unspecified whether mcfp insulin use (Primary Dx) Social History Tobacco Use Types [...] documented as of this encounter Results * Microalbumin/creatinine ratio, random urine (08/16/2018 7:27 AM EDT) URINE MICROALBUMIN <1.2 0 - 2.3 mg/dL [facility] URINE CREATININE 142 mg/dL [facility] MICROALB/CRE RATIO NOT CALCULATED 0 - 20 mg/g Cre [facility] Comment:due to Microalbumin <1.2 Urine (Urine) 08/16/2018 7:2 7 AM EDT 08/16/2018 9:01 AM EDT us Mario Nunez DO URINE ORDERABLES Final Result Performing Organization Address [facility] Co de Phone Number [address] [address] * Microalbumin/creatinine ratio, random urine (01/09/2018 7:32 AM EDT) URINE MICROALBUMIN 0.2 0 - 2.3 mg/dL [facility] URINE CREATININE 97 mg/dL [facility] MICROALB/CRE RATIO NOT CALCULATED 0 - 20 mg/g Cre [facility] Comment:due to Microalbumin <1.2 Urine (Urine) 01/09/2018 7:3 2 AM EDT 01/09/2018 8:21 AM EDT us Mario Nunez DO URINE ORDERABLES Final Result Performing Organization Address [facility] Co de Phone Number [address] [address] documented in this encounter Visit Diagnoses Diagnosis Type 2 diabetes mellitus without complication, unspecified whether intermediate project manager insulin use- Primary documented in this encounter Additional Health Concerns Infection Onset Date Last Indicated Resolved Time CoV-Risk 04/23/2023 04/23/2023 05/04/2023 1:22 AM EST documented as of this encounter Care Teams Electric Stove Installer Relationship Specialty Start Date End Date Unknown, Unknown, PCP - General 05/10/17 01/19/18 Mario Nunez DO [email or web address] PCP - General Internal Medicine 01/20/18 documented as of this encounter Additional Source Comments The information contained in this document represents components of the legal health record. It is not the complete legal health record.[facility]
--- OUTSIDE RECORDS SUMMARY | 2025-03-05 07:41 | XMS_ITS | Encounter Summary ---
Author Organization [facility] Address [address] [facility] [address] [place] [address] Phone Care Team Providers Care Remarketing Rep Name Role Phone Mario Nunez Primary Care Provider [phone] Encounter Details Date Type Department Care Team (Latest Contact Info) Description 03/03/2022 Transcribe Orders Virtual Department [address] [place] [address] Francy Wu PA [address] [place] [address] [address] [place] [address] Left arm pain (Primary Dx) Social History Tobacco Use Types Packs/Day Years Used Date Smoking Tobacco: Every Day Cigarettes 1 20 Cigars Smokeless Tobacco: Never Comments:Smokes 6-7 cigars/d ay Alcohol Use Standard Drinks/Week Comments Yes 0 (1 standard drink = 0.6 oz pur e alcohol) 1-2 times a month Sex and Gender Information Value Date Recorded Sex Assigned at Male 01/21/2018 9:09 AM EDT Legal Sex Male 9:45 PM EDT Gender Identity Male 01/21/2018 9:09 AM EDT Sexual Orientation Not on file documented as of this encounter Plan of Treatment Not on file documented as of this encounter Results * US UPPER EXTREMITY NON-VASCULAR LIMITED (LEFT) (03/25/2022 2:33 PM EDT) Anatomical Region Laterality Modality Shoulder Left, Arm Left, Elb ow Left, Forearm Left, Wrist Left, Hand Left Ultrasound 03/25/2022 4:58 PM EDT Impressions 03/25/2022 4:59 PM EDT No sonographic abnormality to correspond to area of patient's symptoms at the left antecubital fossa. Continued clinical follow-up recommended Narrative 03/25/2022 4:59 PM EDT TECHNIQUE: US UPPER EXTREMITY NON-VASCULAR LIMITED (LEFT) Focused sonographic evaluation of the left antecubital fossa COMPARISON: There is no prior study available for comparison FINDINGS: Targeted sonography of the left antecubital fossa demonstrates normal sonographic appearance of the soft tissues. The visualized veins and arteries demonstrate color Doppler flow. Procedure Note Lauryn Calvo MD - 03/25/2022 TECHNIQUE: US UPPER EXTREMITY NON-VASCULAR LIMITED (LEFT) Focused sonographic evaluation of the left antecubital fossa COMPARISON: There is no prior study available for comparison FINDINGS: Targeted sonography of the left antecubital fossa demonstrates normalsonographic appearance of the soft tissues. The visualized veins andarteries demonstrate color Doppler flow. IMPRESSION: No sonographic abnormality to correspond to area of patient's symptoms atthe left antecubital fossa. Continued clinical follow-up recommended us Francy Seferino GRANT IMG US EXTREMITY Final Resu lt documented in this encounter Visit Diagnoses Diagnosis Left arm pain- Primary Pain in soft tissues of limb Left arm pain Pain in soft tissues of limb documented in this encounter Additional Health Concerns Infection Onset Date Last Indicated Resolved Time CoV-Risk 04/23/2023 04/23/2023 05/04/2023 1:22 AM EST documented as of this encounter Care Teams Remarketing Rep Relationship Specialty Start Date End Date Mario Nunez DO [email or web address] PCP - General Internal Medicine 01/20/18 documented as of this encounter Additional Source Comments The information contained in this document represents components of the legal health record. It is not the complete legal health record.[facility]
--- OUTSIDE RECORDS SUMMARY | 2025-03-05 07:41 | XMS_ITS | Encounter Summary ---
Author Organization [facility] Address [address] [address] Phone Care Team Providers Care Cloth Feeder Name Role Phone Unknown, Unknown MD Primary Care Provider Mario Bowles DO Primary Care Provider [phone] Encounter Details Date Type Department Care Team (Late st Contact Info) Description 05/10/2017 Transcribe Orders [facility] [address] [place] [address] Mario Nunez DO [address] [facility] [place] [address] Impaired fasting glucose (Primary Dx) Social History Tobacco Use Types [...] of this encounter Results * PSA (screening) (05/10/2017 7:40 AM EST) PSA 1.75 0 - 4.00 ng/mL [facility] Blood 05/10/2017 7:40 AM EST 05/10/2017 7:58 AM EST us Mario Nunez DO LAB BLOOD ORDERABLES Final Resul t [address] [address] * (ABNORMAL) Hemoglobin A1c (05/10/2017 7:40 AM EST) HEMOGLOBIN A1C 6.2(H) 4.3 - 5.8 % [facility] Blood 05/10/2017 7:40 AM EST 05/10/2017 7:58 AM EST us Mario Nunez DO LAB BLOOD ORDERABLES Final Resul t [address] [address] documented in this encounter Visit Diagnoses Diagnosis Impaired fasting glucose- Primary documented in this encounter Additional Health Concerns Infection Onset Date Last Indicated Resolved Time CoV-Risk 04/23/2023 04/23/2023 05/04/2023 1:22 AM EST documented as of this encounter Care Teams Cloth Feeder Relationship Specialty Start Date End Date Unknown, Unknown, PCP - General 05/10/17 01/19/18 Mario Nunez DO [email or web address] PCP - General Internal Medicine 01/20/18 documented as of this encounter Additional Source Comments The information contained in this document represents components of the legal health record. It is not the complete legal health record.[facility]
--- OUTSIDE RECORDS SUMMARY | 2025-03-05 07:41 | XMS_ITS | Encounter Summary ---
Author Organization [facility] Address [address] [facility] [address] [place] [address] Phone Care Team Providers Care Furnace Setter Name Role Phone Mario Nunez DO Primary Care Provider [phone] Reason for Referral * MRI/CAT Scan - Closed Specialty Diagnoses / Procedures Referred By Phyllis schumacher Referred To Contact Radiology Diagnoses Chronic sinusitis, unspecified location Procedures CT Face CHG CT SCAN,MAXILLOFACIAL AREA,W/O CONTRAST Mario Nunez DO Phone: tel: fax: [email or web address] Referral ID Status Reason Start Date Expiration Date Visits Re quested Visits Authorized [id number] Closed 10/04/2023 12/03/2023 1 1 Encounter Details Date Type Department Care Team (Late st Contact Info) Description 10/04/2023 Transcribe Orders Virtual Department [address] [place] [address] Mario Nunez DO [address] [place] [address] [email or web address] Chronic sinusitis, unspecified location (Primary Dx) Social History Tobacco Use Types Packs/Day Years Used Date Smoking Tobacco: Every Day Cigarettes 1 20 Cigars Smokeless Tobacco: Never Comments:Smokes 6-7 cigars/d ay Alcohol Use Standard Drinks/Week Comments Yes 0 (1 standard drink = 0.6 oz pur e alcohol) 1-2 times a month Education Answer Date Recorded Are you interested in more education? Not on osiel e 09/24/2022 Are you concerned about learning? Not on file 09/24/2022 No 09/24/2022 No 09/24/2022 Digital Access Answer Date Recorded No 10/23/2022 No 10/23/2022 Reliable internet access at home? Not on file 10/23/2022 Device with a working camera? Not on file Sex and Gender Information Value Date Recorded Sex Assigned at Male 01/21/2018 9:09 AM EDT Legal Sex Male 9:45 PM EDT Gender Identity Male 01/21/2018 9:09 AM EDT Sexual Orientation Not on file documented as of this encounter Plan of Treatment Not on file documented as of this encounter Results * CT FACE (SINUS) WITHOUT CONTRAST (11/03/2023 11:21 AM EDT) Anatomical Region Laterality Modality Face Computed Tomogra phy 11/06/2023 8:34 PM EDT Impressions 11/08/2023 10:46 PM EDT Pansinus opacification, with extensive nodular mucosal thickening throughout the nasal cavity, and multiple likely nasal polyps. Narrative 11/08/2023 10:[address] FACE (SINUS) WITHOUT CONTRAST Referring clinician's provided indication for this examination in Epic: Outside Radiology Order; chronic sinusitis TECHNIQUE: Multidetector-row CT of the sinuses was performed without intravenous contrast using tailored dose modulation techniques. Images were reconstructed in the axial, coronal, and sagittal planes. COMPARISON: None FINDINGS: Aerodigestive Tract: Normal. The mucosa appears symmetrical. Salivary Glands: Normal. No obvious lesion is present. Paranasal Sinuses and Nasal Cavity: Diffuse opacification of nearly all the paranasal sinuses, with minimal aeration seen in portions of the maxillary sinuses, as well as in the left sphenoid sinus. Portions of the sinus contents are hyperdense, likely reflecting inspissated secretions. All the major sinonasal drainage pathways are opacified. There appears to be expansion of the ostia of the bilateral maxillary sinuses, which may or may not be postsurgical. There is also thinning and in conspicuity of the bony septa between the ethmoid air cells. There is diffuse polypoid and nodular thickening along the mucosa of the nasal cavity,, with some of the larger areas likely reflecting nasal polyps, for example along the posterior left nasal cavity on 4:55 and anterosuperior right nasal cavity on 4:72. Severe leftward nasal septal deviation. The optic nerve canals and right internal carotid artery are covered by bone. There is thinning of the bone overlying the left internal carotid artery along the posterior wall of the sphenoid sinus on 4:73. Lymph Nodes: Normal. There are no nodes meeting CT criteria for pathologic involvement. Brain and Orbits: No detectable abnormality is evident in the imaged portions of the brain and orbits on this nondedicated examination. Bones (other than nasal cavity and sinuses): Normal. No suspicious osseous lesions are present. Soft Tissues: Normal. No evidence of mass lesion. Procedure Note Marcos Yip MD - 11/08/2023 CT FACE (SINUS) WITHOUT CONTRAST Referring clinician's provided indication for this examination in Epic:Outside Radiology Order; chronic sinusitis TECHNIQUE: Multidetector-row CT of the sinuses was performed withoutintravenous contrast using tailored dose modulation techniques. Imageswere reconstructed in the axial, coronal, and sagittal planes. COMPARISON: None FINDINGS: Aerodigestive Tract: Normal. The mucosa appears symmetrical. Salivary Glands: Normal. No obvious lesion is present. Paranasal Sinuses and Nasal Cavity: Diffuse opacification of nearly allthe paranasal sinuses, with minimal aeration seen in portions of themaxillary sinuses, as well as in the left sphenoid sinus. Portions of thesinus contents are hyperdense, likely reflecting inspissated secretions. All the major sinonasal drainage pathways are opacified. There appears neha expansion of the ostia of the bilateral maxillary sinuses, which may ormay not be postsurgical. There is also thinning and in conspicuity of thebony septa between the ethmoid air cells. There is diffuse polypoid andnodular thickening along the mucosa of the nasal cavity,, with some of thelarger areas likely reflecting nasal polyps, for example along theposterior left nasal cavity on 4:55 and anterosuperior right nasal cavityon 4:72. Severe leftward nasal septal deviation. The optic nerve canals and rightinternal carotid artery are covered by bone. There is thinning of the boneoverlying the left internal carotid artery along the posterior wall of thesphenoid sinus on 4:73. Lymph Nodes: Normal. There are no nodes meeting CT criteria for pathologicinvolvement. Brain and Orbits: No detectable abnormality is evident in the imagedportions of the brain and orbits on this nondedicated examination. Bones (other than nasal cavity and sinuses): Normal. No suspicious osseouslesions are present. Soft Tissues: Normal. No evidence of mass lesion. IMPRESSION: Pansinus opacification, with extensive nodular mucosal thickeningthroughout the nasal cavity, and multiple likely nasal polyps. us Mario Nunez DO IM CT HEAD/NECK Final Result documented in this encounter Visit Diagnoses Diagnosis Chronic sinusitis, unspecified location- Primary Chronic sinusitis, unspecified location documented in this encounter Care Teams Furnace Setter Relationship Specialty Start Date End Date Mario Nunez DO [email or web address] PCP - General Internal Medicine 01/20/18 documented as of this encounter Additional Source Comments The information contained in this document represents components of the legal health record. It is not the complete legal health record.[facility]
--- OUTSIDE RECORDS SUMMARY | 2025-03-05 07:41 | XMS_ITS | Encounter Summary ---
Author Organization [facility] Address [address] [facility] [address] [place] [address] Phone Care Team Providers Care Nib Adjuster Name Role Phone Mario Nunez DO Primary Care Provider [phone] Encounter Details Date Type Department Care Team (Late st Contact Info) Description 01/21/2018 Procedure Pass [facility], Ct Scan - [address] [address] Social History Tobacco Use Types Packs/Day Years [...] documented as of this encounter Visit Diagnoses Not on filedocumented in this encounter Additional Health Concerns Infection Onset Date Last Indicated Resolved Time CoV-Risk 04/23/2023 04/23/2023 05/04/2023 1:22 AM EST documented as of this encounter Care Teams Nib Adjuster Relationship Specialty Start Date End Date Mario Nunez DO PCP - General Internal Medicine 01/20/18 documented as of this encounter Additional Source Comments The information contained in this document represents components of the legal health record. It is not the complete legal health record.[facility]
--- OUTSIDE RECORDS SUMMARY | 2025-03-05 07:41 | XMS_ITS | Encounter Summary ---
Author Organization [facility] Address [address] [facility] [address] [place] [address] Phone Care Team Providers Care Gold Blower Name Role Phone Mario Nunez DO Primary Care Provider Encounter Details Date Type Department Care Team (Late st Contact Info) Description 10/04/2023 Procedure Pass [facility], Ct Scan - [address] [address] Social History Tobacco Use Types Packs/Day Years [...] Diagnoses Not on filedocumented in this encounter Care Teams Gold Blower Relationship Specialty Start Date End Date Mario Nunez DO [email or web address] PCP - General Internal Medicine 01/20/18 documented as of this encounter Additional Source Comments The information contained in this document represents components of the legal health record. It is not the complete legal health record.[facility]
--- OUTSIDE RECORDS SUMMARY | 2025-03-05 07:41 | XMS_ITS | Encounter Summary ---
Author Organization [facility] Address [address] [facility] [address] [place] [address] Phone Care Team Providers Care Commercial Sales Manager Name Role Phone Mario Nunez Primary Care Provider [phone] Encounter Details Date Type Department Care Team (Latest Contact Info) Description 04/13/2019 Transcribe Orders [facility] [address] [place] [address] Matthew Jones MD [address] [place] [address], [address] [address] [email or web address] Disease of prostate (Primary Dx) Social History Tobacco Use Types [...] of this encounter Results * PSA (screening) (04/13/2019 7:35 AM EST) PSA 1.63 0 - 4.00 ng/mL [facility] Blood 04/13/2019 7:35 AM EST 04/13/2019 8:19 AM EST us Matthew Jones MD LAB BLOOD ORDERABLES Final Resu lt [facility] [address] [place] [address] documented in this encounter Visit Diagnoses Diagnosis Disease of prostate- Primary Unspecified disorder of prostate documented in this encounter Additional Health Concerns Infection Onset Date Last Indicated Resolved Time CoV-Risk 04/23/2023 04/23/2023 05/04/2023 1:22 AM EST documented as of this encounter Care Teams Commercial Sales Manager Relationship Specialty Start Date End Date Mario Nunez DO [email or web address] PCP - General Internal Medicine 01/20/18 documented as of this encounter Additional Source Comments The information contained in this document represents components of the legal health record. It is not the complete legal health record.[facility]
--- OUTSIDE RECORDS SUMMARY | 2025-03-05 07:41 | XMS_ITS | Encounter Summary ---
Author Organization [facility] Address [address] [address] Phone Care Team Providers Care Senior Engineering Team Leader Name Role Phone Mario Nunez DO Primary Care Provider [phone] Encounter Details Date Type Department Care Team (Late st Contact Info) Description 04/13/2019 Transcribe Orders [facility] [address] [place] [address] Mario Nunez DO [address] [facility] [place] [address] Essential hypertension, malignant (Primary Dx); Type 2 diabetes mellitus without complication, unspecified whether salvage determiner insulin use; Screening examination for poliomyelitis Social History Tobacco Use Types Packs/Day Years [...] documented as of this encounter Results * Hepatitis C antibody, qualitative (04/13/2019 7:35 AM EST) HCV NON-REACTIV E NON-REACTI VE [facility] Blood 04/13/2019 7:35 AM EST 04/13/2019 8:19 AM EST us Mario A Bigda DO LAB BLOOD ORDERABLES Final Resul t [address] [address] * (ABNORMAL) Comprehensive metabolic panel (04/13/2019 7:35 AM EST) SODIUM 141 133 - 146 mmol/L [facility] POTASSIUM 5.0 3.3 - 5.1 mmol/L [facility] CHLORIDE 103 96 - 108 mmol/L [facility] CO2 30 21 - 35 mmol/L [facility] BUN 14 6 - 19 mg/dL [facility] CREATININE 1.00 0.5 - 1.5 mg/dL [facility] GLUCOSE 141(H) 70 - 99 mg/dL [facility] ALBUMIN 4.2 3.9 - 4.8 g/dL [facility] TOTAL PROTEIN 7.3 6.5 - 8.0 g/dL [facility] CALCIUM 9.4 8.4 - 10.3 mg/dL [facility] ALKALINE PHOSPHATASE 72 39 - 117 U/L [facility] TOTAL BILIRUBIN 0.2 0.0 - 1.2 mg/dL [facility] AST 24 0 - 37 U/L [facility] ALT 34 0 - 40 U/L [facility] GLOBULIN 3.1 1 - 4.8 g/dL [facility] EGFR 84 >59 mL/min/1.7 3m2 [facility] Comment:If patient is black, multiply result by 1.159. Estimated glomerular filtration rate calculated using the CKD-EPI equation. ANION GAP 13 10 - 20 mmol/L [facility] Blood 04/13/2019 7:35 AM EST 04/13/2019 8:19 AM EST us Mario A Bigda DO LAB BLOOD ORDERABLES Final Resul t [address] [address] * (ABNORMAL) Lipid panel (04/13/2019 7:35 AM EST) HDL 41 mg/dL [facility] Comment: Interpretation <40 mg/dL: Low HDL cholesterol (major risk factor for CHD) Greater than or equal to 60 mg/dL: High HDL cholesterol ( negative risk factor for CHD) HDL - cholesterol is affected by a number of factors, e.g. smoking, excerise, hormones, sex and age. CHOLESTEROL 102 0 - 240 mg/dL [facility] TRIGLYCERIDES 89 30 - 160 mg/dL [facility] LDL 43(L) 50 - 129 mg/dL [facility] Comment: LDL levels in terms of risk for coronary heart disease: <100 mg/dL: Optimal 100-129 mg/dL: Near or above optimal 130-159 mg/dL: Borderline high 160-189 mg/dL: High >190 mg/dL: Very High CARDIAC RISK RATIO 2.5(L) 3.4 - 5.0 C [facility] Blood 04/13/2019 7:35 AM EST 04/13/2019 8:19 AM EST us Mario Nunez DO LAB BLOOD ORDERABLES Final Resul t Performing Organization Address City/State/[facility] Co de Phone Number [facility] [address] [place] [address] documented in this encounter Visit Diagnoses Diagnosis Essential hypertension, malignant- Primary Type 2 diabetes mellitus without complication, unspecified whether salvage determiner insulin use Screening examination for poliomyelitis documented in this encounter Additional Health Concerns Infection Onset Date Last Indicated Resolved Time CoV-Risk 04/23/2023 04/23/2023 05/04/2023 1:22 AM EST documented as of this encounter Care Teams Senior Engineering Team Leader Relationship Specialty Start Date End Date Mario Nunez DO PCP - General Internal Medicine 01/20/18 documented as of this encounter Additional Source Comments The information contained in this document represents components of the legal health record. It is not the complete legal health record.[facility]
--- OUTSIDE RECORDS SUMMARY | 2025-03-05 07:43 | XMS_ITS | Encounter Summary ---
Author Organization [facility] Address [address] [facility] [address] [place] [address] Phone Care Team Providers Care Chief Investigator Name Role Phone Mario Nunez DO Primary Care Provider [phone] Encounter Details Date Type Department Care Team (Late st Contact Info) Description 01/21/2018 Procedure Pass [facility], Ct Scan - [address] [address] Social History Tobacco Use Types Packs/Day Years [...] documented as of this encounter Care Teams Chief Investigator Relationship Specialty Start Date End Date Mario Nunez DO PCP - General Internal Medicine 01/20/18 documented as of this encounter Additional Source Comments The information contained in this document represents components of the legal health record. It is not the complete legal health record.[facility]
--- OUTSIDE RECORDS SUMMARY | 2025-03-05 07:43 | XMS_ITS | Encounter Summary ---
Author Organization [facility] Address [address] [place] [address] [place] [address] Phone Care Team Providers Care Box Sealing Machine Feeder Name Role Phone Mario Nunez DO Primary Care Provider [phone] Encounter Details Date Type Department Care Team (Late st Contact Info) Description 02/17/2022 Procedure Pass [facility] Admitting Dept Virtual Department [address] [place] [address] Social History Tobacco Use Types Packs/Day Years [...] documented as of this encounter Care Teams Box Sealing Machine Feeder Relationship Specialty Start Date End Date Mario Nunez DO [email or web address] PCP - General Internal Medicine 01/20/18 documented as of this encounter Additional Source Comments The information contained in this document represents components of the legal health record. It is not the complete legal health record.[facility]
--- OUTSIDE RECORDS SUMMARY | 2025-03-05 07:43 | XMS_ITS | Clinical Summary ---
Author Organization [facility] Address [address] [place] [id number] Phone Care Team Providers Care Gore Stitcher Name Role Phone AlexiaTom louis Primary Care Provider [phone] Allergies Active Allergy Reactions Criticality Noted Date Comments Sulfa (Sulfonamide Antibiotics) 12/29 Medications simvastatin (ZOCOR) 80 MG tablet Take 80 mg by mouth nightly. Active acyclovir (ZOVIRAX) 800 MG tablet Take 800 mg by mouth daily. Active clobetasol (TEMOVATE) 0.05 % cream Apply 1 application topically 2 (two) times a day. Active nicotine (NICODERM CQ) 14 mg/[address] 1 patch onto the skin daily. Apply to a clean, dry, hairless site on the upper arm or hip. 14 patch 8 Active Additional Information Patient not taking.Reported on 02/16/2022 metFORMIN (GLUCOPHAGE) 1000 MG tablet Take 1,000 mg by mouth 2 (two) times a day with meals. Active SITagliptin (JANUVIA) 100 MG tablet Take 100 mg by mouth daily. Active Active Problems Problem Noted Date Diagnosed Date Hyponatremia 01/21/2018 Assessment & Plan (01/21/2018 2:09 PM EDT): Appreciate renal consult. Urine sodium 24, urine osmolality greater than 500. Repeat sodium pending. If this confirms hyponatremia, clinically suspect SIADH. Awaiting Cortisol and TSHWill await repeat sodium to confirm. If this does confirm hyponatremia will proceed with 3% saline. Check serial sodium levels every 4 hours. Goal is to bring up sodium to 110 over the next 8 hours. Avoid overcorrection. Neurologic exam currently reveals very mild disorientation. Monitor for any change. Seizure precautions in place. Abnormal chest x-ray 01/21/2018 Assessment & Plan (01/21/2018 1:59 PM EDT): Community acquired pneumonia versus mass. The patient is a smoker. Will treat for community acquired pneumonia and also evaluate with contrast CT of the chest. Hypertension 01/21/2018 Assessment & Plan (01/21/2018 1:38 PM EDT): Hold lisinopril due to hyponatremia. Follow blood pressure. We will introduce a new antihypertensive if needed. Hypercholesterolemia 01/21/2018 Herpesvirus infection 08/01/2017 Polyp of colon 08/01/2017 Resolved Problems Problem Noted Date Diagnosed Date Resolved Date Fever 01/21/2018 01/25/2018 Assessment & Plan (01/21/2018 1:58 PM EDT): Unclear if this is related to left lower lobe abnormality., mass versus PNA. Interestingly the patient has no pulmonary symptoms. Hyponatremia/SIADH could certainly be caused by a pulmonary mass. Will also evaluate for alternative sources of fever. -Blood cultures, sputum culture, UA C&S -Check urine for Legionella and strep pneumococcus -Check Lyme titer -Continue with Levaquin for coverage of possible community acquired pneumonia. -Follow up chest imaging as above. Type 2 diabetes mellitus, [facility] long-term current use of insulin 01/21/2018 01/25/2018 Assessment & Plan (01/21/2018 1:35 PM EDT): Follow Accu-Cheks and cover with lispro insulin sliding scale. Family History Medical History Relation Comments Asbestosis Father Relation Status Comments Father Social History Tobacco Use Types Packs/Day Years Used Date Smoking Tobacco: Every Day Cigarettes 1 20 Cigars Smokeless Tobacco: Never Tobacco Cessation:Ready to Q uit: Not Asked; Counseling Given: Not Answered Comments:Smokes 6-7 cigars/day Alcohol Use Standard Drinks/Week Comments Yes 0 [...] AM EDT Sexual Orientation Not on file Last Filed Vital Signs Vital Sign Reading Time Taken Comments Blood Pressure 164/91 04/23/2023 10:06 AM EST Pulse 90 04/23/2023 10:06 AM EST Temperature 37.6 C (99.7 F) 04/23/2023 10:06 AM EST Respiratory Rate 16 02/17/2022 8:20 AM EDT Oxygen Saturation 94% 04/23/2023 10:06 AM EST Inhaled Oxygen Concentration - - Weight 124.7 kg (275 lb) 04/23/2023 10:06 AM EST Height 175.3 cm (5' 9 ) 04/23/2023 10:06 AM EST Body Mass Index 40.61 04/23/2023 10:06 AM EST Plan of Treatment Health Maintenance Due Date Last Done Comments Adult Td,Tdap Booster 1960 DEPRESSION SCREENING 1974 SMOKING Hx and SMOKELESS TOBACCO SCREENING 1975 HIV ONE-TIME SCREENING (18-65 YEARS) 1980 PNEUMOCOCCAL VACCINES (50+ years) (1 of 2 - PCV) 1981 COLOGUARD 2007 FIT TEST 2007 FOBT 2007 SIGMOIDOSCOPY 2007 VIRTUAL COLONOSCOPY 2007 RSV VACCINE (1 - Risk 50-74 years 1-dose series) 2012 ZOSTER VACCINES (1 of 2) 2012 CREATININE LEVEL 04/13/2020 04/13/2019, 08/2017, 01/26/2018, Additional history exists SCREENING FOR DIABETES 01/31/2021 01/31/2018 BLOOD PRESSURE 10/22/2023 04/23/2023 LIPID PANEL 04/13/2024 04/13/2019, 03, 04/18/2018, Additional history exists INFLUENZA VACCINE (#1) 2024 COVID-19 VACCINE ( season) 2025 10/14/2020, 09/17/2020 COLONOSCOPY 02/18/2032 02/17/2022 COLORECTAL CANCER SCREENING 02/18/2032 HEPATITIS C SCREENING Completed 04/13/2019 HEPATITIS A VACCINES Aged Out No long er eligible based on patient's age to complete this topic HIB VACCINES Aged Out No longer eligi ble based on patient's age to complete this topic MENINGOCOCCAL VACCINES (ACWY) Aged Out No longer eligible based on patient's age to complete this topic MENINGOCOCCAL VACCINES (B) Aged Out N o longer eligible based on patient's age to complete this topic Medical Devices Not on file Procedures Procedure Name Priority Date/Time Associated Diagnosis Comments ENDOSCOPY, COLON 02/17/2022 7:44 AM EDT LIPID PANEL Routine 04/13/2019 7:35 AM EST Essential hypertension, malignant Type 2 diabetes mellitus without complication, unspecified whether mcc insulin use Screening examination for poliomyelitis HEPATITIS C ANTIBODY, QUALITATIVE Routine 04/13/2019 7:35 AM EST Essential hypertension, malignant Type 2 diabetes mellitus without complication, unspecified whether mcc insulin use Screening examination for poliomyelitis COMPREHENSIVE METABOLIC PANEL Routine 04/13/2019 7:35 AM EST Essential hypertension, malignant Type 2 diabetes mellitus without complication, unspecified whether mcc insulin use Screening examination for poliomyelitis from Last 3 Months or Most Recently Relevant to Health Maintenance Results * ENDOSCOPY, COLON (02/17/2022 7:44 AM EDT) Narrative Transcriptions Jurgen Fajardo MD - 02/17/2022 7:44 AM EDT Patient Name: Ganesh Abramsjama Attending MD:: JURGEN FAJARDO MD Procedure Date: 02/17/2022 7:44 AM Date of : 1960 Age: 61 Admit Type: Outpatient Gender: Male Room: [facility] 04 Referring MD: TOM KEY DO Exam Type: Colonoscopy Indications: High risk colon cancer surveillance: Personalhistory of colonic polyps, Last colonoscopy: January2017 Medications: Propofol per Anesthesia Procedure: Informed consent was obtained from the patientafter discussion of the indications, limitations, alternatives, benefits, and risks of the procedure. Risks specifically discussed include but are not limited to medication reactions, missed lesions, bleeding, perforation, or the need for emergent surgery. Throughout the procedure, the patient's blood pressure, pulse, end-tidal CO2, and oxygensaturations were monitored continuously. The Olympus adult variable colonoscope [id number] #5 was introduced through the anus and advanced to the terminal ileum, with identification of theappendiceal orifice and IC valve. The terminal ileum, ileocecal valve, appendiceal orifice, and rectum were photographed. The colonoscopy was performed without difficulty. The patient tolerated the procedurewell. The quality of the bowel preparation was good. The bowel preparation used was PEG in Gatoraide and/or Pedialyte via split dose instruction. Complications: No immediate complications. Estimated blood loss:None. Findings: The perianal and digital rectal examinations were normal. Pertinent negatives include normal prostate (size, shape, and consistency). The retroflexed view of the distal rectum and anal verge was normal and showed no anal or rectal abnormalities. A small polyp was found in the cecum. The polyp was sessile. The polyp was removed with a cold snare. Resection and retrieval were complete. The exam was otherwise without abnormality. The terminal ileum appeared normal. Retroflexion in the right colon was performed. Impression: - The distal rectum and anal verge are normal on retroflexion view. - One small polyp in the cecum, removed with a cold snare. Resected and retrieved. - The examination was otherwise normal. - The examined portion of the ileum was normal. Recommendation: - Repeat colonoscopy in 5 years for surveillance. JURGEN FAJARDO MD 02/17/2022 8:19:30 AM This report has been signed electronically. Number of Addenda: 0 Note Initiated On: 02/17/2022 7:44 AM Procedure Code(s): --- Professional --- 48905, Colonoscopy, flexible; with removal of tumor(s), polyp(s), or other lesion(s) by snare technique --- Technical --- 72229, Colonoscopy, flexible; with removal of tumor(s), polyp(s), or other lesion(s) by snare technique Diagnosis Code(s): --- Professional --- Z86.010, Personal history of colonic polyps K63.5, Polyp of colon --- Technical --- Z86.010, Personal history of colonic polyps K63.5, Polyp of colon CPT copyright 2020 [employer]. All rights reserved. The codes documented in this report are preliminary and upon ruby on rails developer reviewmay be revised to meet current compliance requirements. Procedure Date: 02/17/2022 7:44:[address] [place] [address] [id number] us Tom A Bigda DO GI PROCEDURE ORDERABLES Final Re sult * (ABNORMAL) Comprehensive metabolic panel (04/13/2019 7:35 AM EST) SODIUM 141 133 - 146 mmol/L [facility] POTASSIUM 5.0 3.3 - 5.1 mmol/L [facility] CHLORIDE 103 96 - 108 mmol/L [facility] CO2 30 21 - 35 mmol/L [facility] BUN 14 6 - 19 mg/dL [facility] CREATININE 1.00 0.5 - 1.5 mg/dL [facility] GLUCOSE 141(H) 70 - 99 mg/dL [facility] ALBUMIN 4.2 3.9 - 4.8 g/dL [facility] TOTAL PROTEIN 7.3 6.5 - 8.0 g/dL [facility] CALCIUM 9.4 8.4 - 10.3 mg/dL [facility] ALKALINE PHOSPHATASE 72 39 - 117 U/L [facility] TOTAL BILIRUBIN 0.2 0.0 - 1.2 mg/dL [facility] AST 24 0 - 37 U/L [facility] ALT 34 0 - 40 U/L [facility] GLOBULIN 3.1 1 - 4.8 g/dL [facility] EGFR 84 >59 mL/min/1.7 3m2 [facility] Comment:If patient is black, multiply result by 1.159. Estimated glomerular filtration rate calculated using the CKD-EPI equation. ANION GAP 13 10 - 20 mmol/L [facility] Blood 04/13/2019 7:35 AM EST 04/13/2019 8:19 AM EST us Tom A Bigda DO LAB BLOOD ORDERABLES Final Resul t Performing Organization Address [facility]/ZIP Co de Phone Number [address] [address] * Hepatitis C antibody, qualitative (04/13/2019 7:35 AM EST) HCV NON-REACTIV E NON-REACTI VE [facility] Blood 04/13/2019 7:35 AM EST 04/13/2019 8:19 AM EST us Tom A Bigda DO LAB BLOOD ORDERABLES Final Resul t Performing Organization Address [facility] Co de Phone Number [address] [address] * (ABNORMAL) Lipid panel (04/13/2019 7:35 AM EST) HDL 41 mg/dL [facility] Comment: Interpretation <40 mg/dL: Low HDL cholesterol (major risk factor for CHD) Greater than or equal to 60 mg/dL: High HDL cholesterol ( negative risk factor for CHD) HDL - cholesterol is affected by a number of factors, e.g. smoking, excerise, hormones, sex and age. CHOLESTEROL 102 0 - 240 mg/dL [facility] TRIGLYCERIDES 89 30 - 160 mg/dL [facility] LDL 43(L) 50 - 129 mg/dL [facility] Comment: LDL levels in terms of risk for coronary heart disease: <100 mg/dL: Optimal 100-129 mg/dL: Near or above optimal 130-159 mg/dL: Borderline high 160-189 mg/dL: High >190 mg/dL: Very High CARDIAC RISK RATIO 2.5(L) 3.4 - 5.0 [facility] Blood 04/13/2019 7:35 AM EST 04/13/2019 8:19 AM EST us Tom Key DO LAB BLOOD ORDERABLES [place] [address] from Last 3 Months or Most Recently Relevant to Health Maintenance Insurance [address] [place], [place] [address] Advance Directives For more information, please contact: [phone] (9AM - 5PM [facility], Tuesday-Tuesday) * Full Code (Confirmed) (Latest Code Status on File) Date Activated Date Inactivated Comments 01/21/2018 2:08 PM 01/26/2018 12:52 PM Question Answer Comments Code Status Confirmed With: Patient Care Teams Gore Stitcher Relationship Specialty Start Date End Date Tom Key DO PCP - General Internal Medicine 01/20/18 Additional Source Comments The information contained in this document represents components of the legal health record. It is not the complete legal health record.[facility]
--- OUTSIDE RECORDS SUMMARY | 2025-03-05 07:43 | XMS_ITS | Data Portability ---
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 Referral None recorded. Procedures None recorded. Surgeries None recorded. Imaging CT, sinuses, w/wo contrast 2023 024 [email or web address] Not available 10/04/2023 10:14:24 Medication Orders Ozempic 1 mg/dose (4 mg/3 mL) subcutane ous pen injector 2024 025 [id number], [address] [facility], [place], [address], 07/06/2024 09:25:25 Patient TargetsNo targets recorded. Patient Instructions Encounter Date Encounter Id Patient Instructions Last Modified By Organization Details Last Modified Time 09/28/2023 [id number] chronic sinusitis: care instructions Not available 09/28/2023 14:16:44 12/14/2023 [id number] learning about type 2 diabetes Not available 12/14/2023 09:50:14 type 2 diabetes: care instructions Not available 12/14/2023 09:50:14 type 2 diabetes: care instructions Not available 12/14/2023 09:50:14 chronic sinusitis: care instructions Not available 12/14/2023 09:50:15 03/26/2024 [id number] type 2 diabetes: care instructions Not available 03/26/2024 13:48:22 11/23/2024 [id number] learning about type 2 diabetes Not available 11/23/2024 10:24:46 type 2 diabetes: care instructions Not available 11/23/2024 10:24:46 Reason for Referral None Reported. Results Created Date Observation Date Name Description Value Unit Range Abnormal Flag Note LastModifiedBy Organization Detail LastModifiedTime 11/08/19 24 11/03/2023 CT, sinus es, w/o contr ast No observ ation record ed. [facility] (Scheduling Dept) [address] [place] [address], [address], 12/14/2023 09:49:06 Result Notes None recorded. Problems Name Problem SNOMED Code Status Onset Date Resolution Date Notes Provider Name and Address Organization Details Recorded Time Herpesvi jesi infectio n 00983356 Active 2017 opthalmi c Florecita duenas [facility] 8 15:22:55 Hyperten sive disorder 10658838 Active 2017 Florecita duenas [facility] 8 08:48:08 Hypercho lesterol emia 89022247 Active 2017 Florecita duenas [facility] 8 08:48:15 Impaired fasting glycemia 873462305 Completed 201708/21/2018 Mario Key DO [address] [place] [address], [address], [facility] 9 10:55:58 Polyp of colon 93812134 Active 2017 Florecita duenas [facility] 8 08:49:09 Hypo-osm olality and or hyponatr emia 901367292 Active 2017 Mario Key DO [address] [place] [address], [address], [facility] 8 15:01:40 Pneumoni a 067027858 Active 2017 Mario Key DO [address] [place] [address], [address], [facility] 8 15:01:49 Legionel la pneumoni a 743050401 Active 2017 Mario Key DO [address] [place] [address], [address], [facility] 8 15:04:57 Tobacco user 175982265 Active 2017 Mario Key DO [address] [place] [address], [address], [facility] 8 11:18:52 Tobacco dependen ce syndrome 83486031 Active 2018 Mario Key DO [address] [place] [address], [address], [facility] 9 10:17:52 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 3824810170 15622 Active 2018 Mario Key DO [address] [place] [address], [address], [facility] 9 09:05:14 Vitamin D deficien cy 38554103 Active 2021 Mario Key DO [address] [place] [address], [address], [facility] 2 10:10:46 Continuo us dependen ce on cigarett e smoking 8787851660 74262 Active 2021 Mario Key DO [address] [place] [address], [address], [facility] 2 11:50:41 Eczema 54534512 Active 2021 Mario Key DO [address] [place] [address], [address], [facility] 2 22:01:26 Pain in left arm 909971649 Active 2021 RUDY SHELBY [address] [place] [address], [address], [facility] 2 14:01:12 Type 2 diabetes mellitus without complica tion 005292021 [facility] 3 15:43:36 Acute sinusiti s 90469460 Active 2022 Mario Key, DO [address] [place] [address], [address], [facility] 3 10:05:59 Chronic sinusiti s 62383368 Active 2023 Mario Key, DO [address] [place] [address], [address], [facility] 4 14:15:58 Chronic pansinus itis 76409804 Active 2023 Mario Key, DO [address] [place] [address], [address], [facility] 4 22:07:03 Type 2 diabetes mellitus 33284078 Active 2024 Mario Key, DO [address] [place] [address], [address], [facility] 5 10:22:43 Acute frontal sinusiti s 43556004 Active 2024 RUDY SHELBY [address] [place] [address], [address], [facility] 5 09:40:31 Problem Notes None recorded. Procedures Surgical History Date Name Laterality Status Provider Name and Address Organization Details Recorded Time 7 Colonoscopy completed Florecita Oropeza [facility] 01/01/2019 09:58:53 Imaging Results None recorded. Procedure Notes None recorded. Medical Equipment None Reported. Allergies Allergen ID Allergen Name Allergen Category Reaction Reaction Severity Criticality Documentation Date Start Date Code Code System Note Provider Name and Address Organization Details Recorded Time 194 Substance with sulfonami de structure and antibacte rial mechanism of action (substanc e) medicatio n Not available Not available Not available 08/01/2017 02654 8003 SNOMED Florecita Oropeza [facility] 8 08:47:59 9111 Januvia medicatio n hives Not available Not available 11/23/2024 87929 6 RxNorm Mario TalibBrennan Key, DO [address] [place], [address] , [facility] 5 10:20:20 Medications Name Sig Start Date Stop Date [...] 1 TABLET DAILY FOR 4 DAYS DIRECTED active Not Available Not Available No t Available meloxicam 15 mg tablet TAKE 1 [...] tablet TAKE 1 TABLET TWICE A DAY active Not Available Not Available No t Available lisinopril 10 mg tablet Take 1 tablet [...] Ozempic 0.25 mg or 0.5 mg (2 mg/1.5 mL) subcutaneou s pen injector Inject 0.5 mg every week by subcutane ous route for 30 days. 09/20 completed Not Available Not Available Not Available Ozempic 1 mg/dose (4 mg/3 mL) subcutaneou s pen injector INJECT 1 MG SUBCUTANE OUSLY EVERY WEEK active Not Available Not Available No t Available Ozempic 0.25 mg or 0.5 mg (2 mg/3 mL) subcutaneou s pen injector INJECT 0.5MG INTO THE SKIN ONCE WEEKLY active Not Available Not Available No t Available Vitals Date Recorded Body height Body mass index (BMI) Body weight Heart rate Oxygen saturation Oxygen saturation in Arterial blood by Pulse oximetry Systolic And Diastolic Provider Name and Address Organization Details Last Updated DateTime 5 172.72 cm 42.3 kg/m2 839641. 68 g 70 /min 98 % 98 % 124/80 mm[Hg] [facility] 5 09:12:51 Date Recorded Body height Body mass index (BMI) Body weight Heart rate Respiratory rate Oxygen saturation Oxygen saturation in Arterial blood by Pulse oximetry Systolic And Diastolic Provider Name and Address Organization Details Last Updated DateTime 4 172.72 cm 40.6 kg/m2 450973. 16 g 85 /min 18 /min 97 % 97 % 138/82 mm[Hg] Coy Varma [facility] 4 14:00:44 Date Recorded Body height Body mass index (BMI) Body weight Oxygen saturation Oxygen saturation in Arterial blood by Pulse oximetry Heart rate Systolic And Diastolic Provider Name and Address Organization Details Last Updated DateTime 5 172.72 cm 42.3 kg/m2 526771. 68 g 96 % 96 % 74 /min 120/77.99 mm[Hg] Yusra Prescott [facility] 5 10:10:15 Date Recorded Body height Body mass index (BMI) Body weight Heart rate Oxygen saturation Oxygen saturation in Arterial blood by Pulse oximetry Systolic And Diastolic Provider Name and Address Organization Details Last Updated DateTime 4 172.72 cm 40.4 kg/m2 753132. 57 g 85 /min 97 % 97 % 128/78 mm[Hg] Yusra [facility] 4 09:14:46 Date Recorded Body height Body mass index (BMI) Body weight Heart rate Oxygen saturation Oxygen saturation in Arterial blood by Pulse oximetry Systolic And Diastolic Provider Name and Address Organization Details Last Updated DateTime 4 172.72 cm 40.1 kg/m2 072057. 39 g 71 /min 96 % 96 % 128/70 mm[Hg] Coy [facility] 4 13:31:49 Social History Question Answer Notes LastModified by Organizat ion Details LastModified Time Tobacco Smoking Status Current Every Day Smoker Not Available [facility] 04/01/2020 03:36:24 What Was The Date Of Your Most Recent Tobacco Screening? 11/23/2024 Information not available 11/23/2024 How Much Tobacco Do You Smoke? 0.5 PPD [email or web address] Information not available 09/28/2023 Sex: Unknown Functional Status Question Answer Note LastModified by Organization D etails LastModified Time Do you or have you ever used any other forms of tobacco or nicotine? No Information not available 08/25/2022 Mental Status None recorded. Family History Nothing Reported. Medical History No medical history recorded. Immunizations Vaccine Type Date Status Note Provider Nam e and Address Organization Details Recorded Time COVID-19, mRNA, LNP-S, PF, 100 mcg/0.5mL dose or 50 mcg/0.25mL dose 09/17/2020 completed Not Available [facility] 3 11:19:00 COVID-19, mRNA, LNP-S, PF, 100 mcg/0.5mL dose or 50 mcg/0.25mL dose 10/14/2020 completed Not Available [facility] 3 11:19:00 Past Encounters Encounter ID Performer Location Encounter Start Date Encounter Closed Date Diagnosis/Indication Diagnosis SNOMED-CT Code Diagnosis ICD10 Code Diagnosis IMO Codes Diagnosis Note [id number] Mario Key [facility] [address] [facility],[place] [address] 09/09/2017 09:59:51 09/09/2017 12:24:07 Hypercholesterolemia 06992304 E78.00 recheck in 4-5 months Impaired f asting glycemia 973583981 R73.01 discussion re diet and eating jesus has gained some wgt but will embark on better diet problis he only eats once a day revchk lab in 3 months Hypertensive disorder 38 655552 I10 here for rechk states has been watching and has been ok [id number] Mario Key [facility] [address] [facility],[place] [address] 12/16/2017 11:50:42 12/16/2017 13:38:19 Nummular eczema 98870640 L30.0 [id number] Mario Key [facility] [address] [facility],[place] [address] 01/18/2018 09:42:29 01/18/2018 10:34:32 Fever 011266761 R50.9 possibly flu, unclear given absence of any other sx besides body aches fluids, rest, tylenol/ib uprofen for fever Hypertensive disorder 38 620778 I10 mildly elevated today ? 2/2 fever Impaired f asting glycemia 981653346 R73.01 [id number] Mario Key [facility] [address] [facility],[place] [address] 02/03/2018 13:56:39 02/03/2018 15:13:09 Hypo-osmolality and or hyponatremia 410294847 E87.1 needs further lab when stable to check for SIADH Pneumonia 596924512 J18. 9 op tx with levaquin had signif levi infilt with reactive lymphadeno matt will need a CXR in a couple weeks had a positive legionella ag test in urine Legionella pneumonia 195 689753 A48.1 as above [id number] Mario Key DO [facility] [address] [facility] [address],[facility] [address] 02/22/2018 14:33:30 02/22/2018 15:42:44 Hypertensive disorder 14918630 I10 here for rechk states has been watching and has been ok Impaired f asting glycemia 027743522 R73.01 discussion re diet and eating habilts has gained some wgt but will embark on better diet problis he only eats once a day revchk lab in 3 months Pneumonia 477017317 J18. 9 legionella pneumonia has totally cleared by cxr feels back to normal Hypo-osmol ality and or hyponatremia 993202686 E87.1 needs further lab when stable to check for SIADH all ordered [id number] Mario Key DO [facility] [address] [facility] [address],[facility] [place] [address] 05/01/2018 10:42:34 05/01/2018 14:46:03 Impaired fasting glycemia 703614494 R73.01 a1c is 6.5 and is not careful with diabetes diet and is eating poorly warned him agian re dangers of developing full dm discussion re diet and eating habilts has gained some wgt but will embark on better diet problis he only eats once a day revchk lab in 3 months Hypertensive disorder 38 429243 I10 here for rechk states has been watching and has been ok is off the bp meds per the specialist s also will cont to chk bp if he cont to rise will need to be started back on med Tobacco user 668505612 Z 72.0 warned again re use needs to abstain given his other pathology [id number] Mario eKy DO [facility] [address] [facility] [address] [address] 08/21/2018 10:13:37 08/21/2018 11:13:11 Hypercholesterolemia 91934100 E78.00 recheck in 4-5 months Hypertensive disorder 38 310635 I10 here for rechk states has been watching and has been ok is off the bp meds per the specialist s also will cont to chk bp if he cont to rise will need to be started back on med Type 2 noel betes mellitus 93613084 E11.9 plan will order metformin 500 daily and rechk in 4 months [id number] Mario Key [facility] [address] [facility],[place] [address] 01/01/2019 09:41:36 01/01/2019 10:27:33 Hypertensive disorder 26531858 I10 here for rechk states has been watching and has been ok is off the bp meds per the specialist s also will cont to chk bp if he cont to rise will need to be started back on med Hypercholesterolemia 136 35319 E78.00 recheck in 4-5 months Tobacco user 591144014 Z 72.0 warned again re use needs to abstain given his other pathology Hepatitis C screening 41 6150103 Z11.59 Active or passive immunization 286864396 Z23 Type 2 noel betes mellitus 75446417 E11.9 metformin 500 daily tolerated and rechk in 4 months Tobacco de pendence syndrome 91870958 F17.200 [id number] Mario Key [facility] [address] [facility] [address] [address] 05/02/2019 08:49:52 05/02/2019 09:13:32 Type 2 diabetes mellitus 10002224 E11.9 metformin 500 daily tolerated but wondering about wgt gain but there is no correlatio n a1c is up to 7.2 and rechk in 4 months Hypertensive disorder 38 281550 I10 bp has been stable and is doing good no chng in meds [id number] Mario Key [facility] [address] [facility] [address] [address] 08/06/2019 09:57:39 08/06/2019 10:54:23 Type 2 diabetes mellitus 03425364 E11.9 metformin 500 daily tolerated but wondering about wgt gain but there is no correlatio n a1c is up to 7.2 and rechk in 4 months Hypertensive disorder 38 746653 I10 bp has been stable and is doing good no chng in meds Active or passive immunization 898451641 Z23 [id number] Mario Key [facility] [address] [facility],[place] [address] 11/23/2019 09:32:18 11/23/2019 11:15:26 Type 2 diabetes mellitus 52912329 E11.9 metformin 500 daily tolerated but wondering about wgt gain but there is no correlatio n a1c is up to 7.6 from 7.5 and rechk in 4 months Hypertensive disorder 38 584875 I10 bp has been stable at home and is doing good despite sl elevat no chng in meds Restless l egs syndrome 44875184 G25.81 Pruritic rash 28708168 L 28.2 [id number] Mario Key [facility] [address] [facility],[place] [address] 02/27/2020 09:02:57 02/27/2020 09:49:10 Type 2 diabetes mellitus 94223131 E11.9 metformin 500 daily tolerated but wondering about wgt gain but there is no correlatio n a1c is 7.5 and was up to 7.6 from 7.5 and rechk in 4 months Hypercholesterolemia 136 48030 E78.00 recheck in 4-5 months Hypertensive disorder 38 081815 I10 bp has been stable at home and is doing good despite sl elevat no chng in meds Petechiae of skin 775009 004 R23.3 could this be the acyclovir? will ask derm to see him [id number] Mario Key [facility] [address] [facility] [address] [address] 08/01/2020 08:44:29 08/01/2020 09:24:42 Type 2 diabetes mellitus 99486926 E11.9 a1c is 8.1 he is out of control states will get back in shape about this we will cont the metformin but if still high will need to treat we will rechk in3 mo dm foot exam is good Hypercholesterolemia 136 65531 E78.00 LDL is good HDL adequate will repeat in october Hypertensive disorder 38 176248 I10 bp has been stable at home and is doing good despite sl elevat no chng in meds [id number] Mario Key [facility] [address] [facility], [place] [facility] [place] [address] 11/07/2020 08:57:13 11/07/2020 12:17:51 Type 2 diabetes mellitus 35162865 E11.9 a1c is now 11.3 and was [...] chk his Na+ level Legionella pneumonia 195 946749 A48.1 resolved Hypertensive disorder 38 783779 I10 bp has been stable at home and is doing good despite sl elevat no chng in meds Hypercholesterolemia 136 82565 E78.00 LDL is good HDL adequate will repeat in october Hypo-osmol ality and or hyponatremia 947140661 E87.1 stable in jan and we will rechk now [id number] Mario Key [facility] [address] [facility], [address] [facility] [address] 11/11/2020 16:02:55 11/11/2020 16:50:33 Type 2 diabetes mellitus 58243599 E11.9 a1c is now 11.7 from 11.3 and was 8.1 he is out of control but i am not sure why this is as he has lost 20lbs in last 2 months by eating well and better and is much more active change metformin to 1gm bid and add januvia 100mg \ [id number] Mario Key [facility] [address] [facility] [address], [address] [facility] [address] 12/17/2020 08:54:15 12/17/2020 09:36:44 Hypertensive disorder 88028508 I10 bp has been stable at home and is doing good despite sl elevat no chng in meds Type 2 noel betes mellitus 49013792 E11.9 a1c is now down to 9.9 from 11.7 from 11.3 and was 8.1 he is out of control but i am not sure why this is as he has lost 20lbs in last 2 months by eating well and better and is much more active change metformin to 1gm bid and add januvia 100mg \ [id number] Mario Key, [facility] [address] [facility],[place] [address] 02/27/2021 08:18:42 02/27/2021 15:32:51 Hypertensive disorder 54046220 I10 bp has been stable at home and is doing good despite sl elevat no chng in meds bp has been great Hypo-osmol ality and or hyponatremia 192581229 E87.1 stable in jan and we will rechk now Type 2 noel betes mellitus 13857833 E11.9 a1c is now 7.0!!!!!!! !! then down to 9.9 from 11.7 from 11.3 and was 8.1 he is out of control but i am he has lost 20lbs in last 2 months by eating well and better and is much more active change metformin to 1gm bid and add januvia 100mg tolerating well Pruritic rash 85800555 L 28.2 pt will call if it gets worse and we will use halobetaso l [id number] Mario Key, [facility] [address] [facility],[place] [address] 06/30/2021 09:26:37 07/01/2021 08:50:30 Hypertensive disorder 41728705 I10 bp has been stable at home and is doing good despite sl elevat no chng in meds bp has been great Type 2 noel betes mellitus 82137710 E11.9 a1c is now 6.6 wow!!!!! was down to 7.0!!!!!!! !! then down to 9.9 from 11.7 from 11.3 and was 8.1 he is out of control but i am he has lost 20lbs in last 2 months by eating well and better and is much more active change metformin to 1gm bid and add januvia 100mg tolerating well COVID-19 352149406 U07.1 has resolved and just has some residual Legionella pneumonia 195 800064 A48.1 resolved without sequellae [id number] Mario Key, [facility] [address] [facility] [place] [address] 09/02/2021 09:30:01 09/02/2021 11:29:14 Type 2 diabetes mellitus 94177171 E11.9 a1c is now 6.6 wow!!!!! was down to 7.0!!!!!!! !! then down to 9.9 from 11.7 from 11.3 and was 8.1 he is out of control but i am he has lost 20lbs in last 2 months by eating well and better and is much more active change metformin to 1gm bid and add januvia 100mg tolerating well Hypercholesterolemia 136 37300 E78.00 LDL is good HDL adequate will repeat in october Hypertensive disorder 38 358074 I10 bp has been stable at home and is doing good despite sl elevat no chng in meds bp has been great Tobacco user 950656291 Z 72.0 warned again re use needs to abstain given his other pathology Hypo-osmol ality and or hyponatremia 876468307 E87.1 stable in jan and we will rechk now Vitamin D deficiency 347 91384 E55.9 [id number] Mario Key, [facility] [address] [facility] [place] [address] 12/28/2021 11:35:02 12/28/2021 13:07:07 Type 2 diabetes mellitus 86750930 E11.9 a1c is now 6.8 and was [...] add januvia 100mg tolerating well Hypercholesterolemia 136 49639 E78.00 LDL is good HDL adequate will repeat in october Hypertensive disorder 38 262779 I10 bp has been stable at home and is doing good despite sl elevat no chng in meds bp has been great Active or passive immunization 315195399 Z23 advised he is due for Tdap and pneumovax Continuous dependence on cigarette smoking 4929704727 68070 F17.210 discussed [id number] Mario Key [facility] [address] [facility] [address] [address] 04/19/2022 11:04:22 04/19/2022 13:31:19 Type 2 diabetes mellitus 04189229 E11.9 a1c is now 7.2 from 6.8 and was 6.6 wow!!!!! was down to 7.0!!!!!!! !! then down to 9.9 from 11.7 from change metformin to 1gm bid and add januvia 100mg tolerating well Hypercholesterolemia 136 92659 E78.00 LDL is good HDL adequate will repeat in october Hypertensive disorder 38 599582 I10 bp has been stable at home and is doing good despite sl elevat no chng in meds bp has been great Pain in left arm 1563556 00 M79.602 [id number] Mario Key [facility] [address] [facility] [address] [address] 08/25/2022 10:38:42 08/25/2022 11:38:54 Type 2 diabetes mellitus 91810647 E11.9 a1c is now 7.6 and was 7.2 in the fall from 6.8 and was 6.6 wow!!!!! was down to 7.0!!!!!!! !! then down to 9.9 from 11.7 from change metformin to 1gm bid and add januvia 100mg tolerating wellhe is still in need of better controlwe will try to get him ozempic Hypertensive disorder 38 603800 I10 bp has been stable at home and is doing good despite sl elevat no chng in meds bp has been great Vitamin D deficiency 347 70082 E55.9 will need follow up Legionella pneumonia 195 [id number] A48.1 resolved without sequellae [id number] Mario Key [facility] Internal Medicine [address],[place] [address] 12/20/2022 10:11:39 12/20/2022 11:08:41 Hypertensive disorder 17823053 I10 bp has been stable at home and is doing good despite sl elevat no chng in meds bp has been great Type 2 noel betes mellitus 91866577 E11.9 a1c is now 6.4 since the [...] try to get him ozempic Hypercholesterolemia 136 72277 E78.00 LDL is good HDL adequate will repeat in october Mario Key DO [facility] Internal Medicine [address] [facility],[place] [address] 03/23/2023 15:33:55 03/23/2023 16:54:34 Hypercholesterolemia 31082481 E78.00 LDL is good HDL adequate will repeat in october Type 2 noel betes mellitus without complication 174425583 E11.9 doing great at a1c 6.1 on ozemp and metfr will have low threshold to change to mounjaro if supply occurs again Hypertensive disorder 38 755627 I10 bp has been stable at home and is doing good and here it is 120/72 no chng in meds bp has been great [id number] Mario Key DO [facility] Internal Medicine [address] [facility],[place] [address] 05/31/2023 08:21:35 05/31/2023 16:08:33 Type 2 diabetes mellitus 02608884 E11.9 a1c is now 6.4 and prior [...] try to get him ozempic Hypercholesterolemia 136 86342 E78.00 LDL is good HDL adequate will repeat in october Hypertensive disorder 38 634670 I10 bp has been stable at home bps are doing ok overall and is doing good and here it is 120/72 no chng in meds bp has been great [id number] Mario Key, [facility] Internal Medicine [address] [facility],[place] [address] 09/02/2023 10:31:21 09/02/2023 12:45:33 Type 2 diabetes mellitus 78327962 E11.9 a1c is now 6.2 was 6.4 [...] try to get him ozempic Hypercholesterolemia 136 75802 E78.00 LDL is good HDL adequate will repeat in october Acute sinusitis 92534584 J01.90 [id number] Mario Key, [facility] Internal Medicine [address] [facility], [place] [address] 09/28/2023 13:48:52 09/28/2023 15:17:03 Acute sinusitis 01086333 J01.90 he has a hx of polyps belive he is not draining Depression screening 171 687002 Z13.31 neg Chronic sinusitis 029356 00 J32.9 [id number] Mario Key [facility] Internal Medicine [address] [facility],[place] [address] 12/14/2023 09:05:43 12/14/2023 11:14:56 Chronic sinusitis 97978286 J32.9 he will call back and let us know if any of the symptoms start to come backwe will treat him with 3 weeks of augmentin Type 2 noel betes mellitus without complication 318329701 E11.9 doing great at a1c 6.3 was 6.1 on ozemp and metfr will have low threshold to change to mounjaro if supply occurs again Type 2 noel betes mellitus 50600335 E11.9 a1c is now 6.3 see above [...] to get him ozempic Hypertensive disorder 38 675212 I10 bp has been stable at home bps are doing ok overall and is doing good and here it is 120/72 no chng in meds bp has been great [id number] Mario Key [facility] Internal Medicine [address] [facility],[place] [address] 03/26/2024 13:23:41 03/26/2024 15:01:13 Depression screening 093386483 Z13.31 neg Type 2 noel betes mellitus without complication 327998343 E11.9 doing great at a1c is 6.2 prior 6.3 was 6.1 on ozemp and metfr will have low threshold to change to mounjaro if supply occurs again Hypertensive disorder 38 446030 I10 bp has been stable at home bps are doing ok overall and is doing good and here it is 120/72 no chng in meds bp has been great Eczema 04937772 L30.9 stable [id number] Mario Key [facility] Internal Medicine [address] [facility],[place] [address] 07/06/2024 08:59:43 07/06/2024 09:30:30 Hypertensive disorder 07932206 I10 bp has been stable at home bps are doing ok overall and is doing good and here it is 124/80 no chng in meds bp has been great Type 2 noel betes mellitus without complication 693834837 E11.9 A1C 6.3 on 06/29/24 no problem on Ozempic, insurance stopping Januvia, will increase Ozempic [id number] Mario Key DO [facility] [address] [facility],[place] [address] 11/23/2024 09:46:08 11/23/2024 10:53:43 Hypertensive disorder 80429527 I10 bp has been stable at home bps are doing ok overall and is doing good and here it is 124/80 no chng in meds bp has been great Depression screening 171 263490 Z13.31 neg Type 2 noel betes mellitus 08500996 E11.9 43345948 a1c is now 6.4 was 6.3 see above was 6.1 and prior [...] controlwe will try to get him ozempic Vitamin D deficiency 347 25128 E55.9 will need follow up in fall Health Concerns Section Related Observation LastModified by Organization Detai ls LastModified Time None Recorded Concern Status LastModified by Organization Details LastModified Time None Recorded Advance Directives Directive None Recorded Payers Insurance Date Sequence Insurance Name Policy Number Policy Lawrence Covered Member ID Lawrence Member ID Guarantor Name 03/05/[address] [place] [address] [id number] Lalita Swan [id number] Ganesh Swan Notes Date Note Type Note Provider Name and Address Organization Details Recorded Time 4 text/htm l ROS as noted in the HPI having ongoing symptoms of nasal sinus drainage with green and bloodno fevers bothering his sleepworse with his lying downhas been using neosynephrine he is on 3rd bottle!! Mario Key DO [address] [facility], [place], [address], [facility] 09/28/2023 14:18:23 4 text/htm l ROS as noted in the HPI here for rechk and is doing ok overall relates that ENT never called Mario Key DO [address] [place], [address], [facility] 12/14/2023 09:50:37 4 text/htm l ROS as noted in the HPI MEDS- complaint, no ADRs DIET- non compliant [...] reaction better with benadrylunsure of cause Mario Key, DO [address] [place], [address], [facility] 03/26/2024 13:55:54 5 text/htm l Care Management - HypertensionReported by Patientbp has been stable at home bps are doing ok overall and is doing good and here it is 124/80 no chng in meds bp has been great Care Management - DiabetesReported by KsiurvwD9C 6.3 on 06/29/24 no problem on Ozempic, insurance stopping Januvia, will increase OzempicROS as noted in the HPI here for rechk and is doing ok overall relates that ENT never called Mario KeyDO [address] [place], [address], [facility] 07/06/2024 09:28:45 5 text/htm l Care Management - DiabetesReported by PatientHPIFor self care, patient reportsseeing eye doctor yearly for dilated eye exam,checking feet regularly,normal range of home blood sugars (in the low 100s), andno side effects from medications. For associated symptoms, patient reportssymptoms are usually well controlled,no fatigue,no dizziness,no excessive sweating,no headaches,no confusion,no increased thirst,no increased appetite,no increased urination,no blurred vision,no numbness of feet, andno calluses on feet. Care Management - HypertensionReported by PatientHPIFor self care, patient reportsnot under emotional stress. For severity, patient reportssymptoms are improvinganddoes not interfere with daily activities. For associated symptoms, patient reportsno dizziness,no lightheadedness,no chest pain,no shortness of breath,no palpitations,no edema,no calf muscle cramps,no blurred vision,no confusion,no headaches, andno fatigue.ROS as noted in the HPI here for rechk and is doing well no issuesdoing ok off larissa Key, DO [address] [facility], [place], [address], [facility] 11/23/2024 10:28:01
--- OUTSIDE RECORDS SUMMARY | 2025-03-05 07:43 | XMS_ITS | Encounter Summary ---
Author Organization [facility] Address [address] [facility] [address] [place] [address] Phone Care Team Providers Care Parking Technician Name Role Phone Mario Nunez DO Primary Care Provider [phone] Encounter Details Date Type Department Care Team (Late st Contact Info) Description 02/03/2018 Ancillary Orders Virtual Department [address] [place] [address] Mario Nunez DO [address] [facility] [place] [address] [email or web address] Legionnaires' disease Social History Tobacco Use Types Packs/Day Years [...] XR CHEST PA AND LATERAL 2 VIEWS (02/20/2018 8:30 AM EDT) Anatomical Region Laterality Modality Chest Radiographic Radha ging 02/20/2018 8:49 AM EDT Impressions 02/20/2018 8:51 AM EDT Interval clearing of left lower lobe infiltrate since 09/16/2017. No acute cardiopulmonary abnormality detected. POS [id number] Narrative 02/20/2018 8:51 AM EDT COMPARISON: 01/16/2014 FINDINGS: PA and lateral views reveal lungs to be well-expanded with interval clearing of the left lower lobe infiltrate. There may be minimal residual postinflammatory opacity but no acute infiltrate or pleural effusion are demonstrated. Heart and pulmonary vessels are within normal limits in size. No pulmonary edema pattern seen. Procedure Note Jurgen Nielson MD - 02/20/2018 COMPARISON: 01/16/2014 FINDINGS: PA and lateral views reveal lungs to be well-expanded with intervalclearing of the left lower lobe infiltrate. There may be minimal residualpostinflammatory opacity but no acute infiltrate or pleural effusion aredemonstrated. Heart and pulmonary vessels are within normal limits insize. No pulmonary edema pattern seen. IMPRESSION: Interval clearing of left lower lobe infiltrate since 09/16/2017. Noacute cardiopulmonary abnormality detected. POS [id number] Mario Nunez DO IMG XR CHEST Final Result documented in this encounter Visit Diagnoses Diagnosis Legionnaires' disease Legionnaires' disease documented in this encounter Additional Health Concerns Infection Onset Date Last Indicated Resolved Time CoV-Risk 04/23/2023 04/23/2023 05/04/2023 1:22 AM EST documented as of this encounter Care Teams Parking Technician Relationship Specialty Start Date End Date Mario Nunez DO [email or web address] PCP - General Internal Medicine 01/20/18 documented as of this encounter Additional Source Comments The information contained in this document represents components of the legal health record. It is not the complete legal health record.[facility]
[2025-03-05 13:59] LABS: Hemoglobin A1C 176.3746 umol/L; Total Hemoglobin (HGBA1C) 3716.3982 umol/L
== END 2025-03-05 07:35 | disposition home or self-care (01) ==
LOC: HO.MANLDS 07:34
PROVIDERS: Visit Provider Internal Medicine
DX: E11.9 Type 2 diabetes mellitus without complications (principal)
CPT/HCPCS: 36415; 83036